=== PATIENT | female | born 1990 | race Caucasian/White ===

== ENCOUNTER → 2020-01-06 10:05 | Outpatient (BNVA) | payer BC, MEDICAID, SELFPAY | PROVIDERS: Family Provider Family Medicine; PCP Family Medicine; Visit Provider Obstetrics & Gynecology | DX: Z01.89 Encounter for other specified special examinations (principal) | CPT/HCPCS: 87491; 87591; 87661 ==

== ENCOUNTER → 2020-01-11 10:12 | Outpatient (BNVA) | payer BC, MEDICAID, SELFPAY | PROVIDERS: Family Provider Family Medicine; PCP Family Medicine; Referring Provider Obstetrics & Gynecology; Visit Provider Obstetrics & Gynecology | DX: N89.8 Other specified noninflammatory disorders of vagina (principal) | CPT/HCPCS: 87491; 87591; 87661 ==

== ENCOUNTER 2020-01-14 08:29 | Emergency (ER) | payer BC, MEDICAID, SELFPAY ==
[2020-01-14 08:34] VITALS: BMI 22.6
[2020-01-14 08:38] VITALS: BP 116/72; PULSE 74; RESP 18; TEMP 36.7; O2SAT 96
[2020-01-14 08:54] LABS: Basophils # 0.1 10^3/uL (0.0-0.1); Basophils % 0.7 %; Eosinophils # 0.2 10^3/uL (0.0-0.8); Eosinophils % 2.4 %; Hematocrit 44.8 % (37.0-47.0); Hemoglobin 14.5 g/dL (11.5-15.3); Lymphocytes # 1.5 10^3/uL (0.8-4.8); Mean Corpuscular HGB Conc 32.4 g/dL (30.0-36.0); Mean Corpuscular Hemoglobin 27.7 pg (28.0-34.0); Mean Corpuscular Volume 85.7 fL (81-99); Mean Platelet Volume 11.9 fL (7.4-10.4); Monocytes # 0.7 10^3/uL (0.2-0.9); Monocytes % 7.7 %; Neutrophils # 6.5 10^3/uL (1.8-7.7); Neutrophils % 72.1 %; Nucleated Red Blood Cells % 0 %; Platelet Count 204 10^3/cmm (130-400); Red Blood Count 5.23 10^6/uL (4.1-5.3); Red Cell Distribution Width 13.5 % (12.1-15.1); White Blood Count 9.1 10^3/uL (4.0-10.0)
--- NOTE | 2020-01-14 08:56 | W.ED.ABDPA2 ---
HPI - Abdominal Pain General: Chief Complaint: Abdominal Pain Stated Complaint: ABD PAIN Time Seen by Provider: 01/14/20 08:33 Source: patient Mode of arrival: ambulatory Limitations: no limitations History of Present Illness: HPI narrative: Patient is a 29-year-old female who presents to ED today with complaints of abdominal cramping and diarrhea that started yesterday. Looking at patient's visit history she has seen Dr. Lopez recently and was diagnosed with BV and placed on Flagyl. The STD cultures obtained for gonorrhea, chlamydia, and trichomonas are reported and found to be negative. Patient tells me she has a lot of stomach issues and reports being evaluated at [facility] in [place]. She states she had an ultrasound of her abdomen performed yesterday. She was supposed to have an EGD, colonoscopy, and swallow study but states these tests have been postponed due to the coronavirus. Patient has not been running fevers. She has not had any nausea or vomiting. MD elicited complaint: abdominal pain Onset (ago): day(s) Pain Consistency: intermittent Severity: moderate Quality: cramping Exacerbating factors: nothing Relieving factors: nothing Associated Symptoms: Reports diarrhea; Denies chills, dysuria, fever(s), hematochezia, hematuria, hematemesis, melena, nausea, syncope and vomiting Related Data: Date of Last Menstrual Period: 12/20/19 Review of Systems Const: Denies: fever, chills, body aches, change in appetite, change in weight or fatigue ENMT: Denies: throat pain, enlarged tonsils or painful swallowing Card: Denies: chest pain, palpitations, irregular heart rhythm, edema, lightheadedness, syncope or pre-syncope Resp: Denies: shortness of breath, productive cough, coughing up blood or chest congestion GI: Reports: abdominal pain and diarrhea; Denies: nausea, vomiting, vomiting blood, rectal swelling, blood in stool, black tarry stool, mucus in stool, white/light colored stool or fatty stool : Reports: vaginal discharge (improving; being treated for BV; STD cultures came back negative); Denies: flank pain, difficulty urinating, painful urination, urinary frequency, urinary urgency, blood in urine or genital itching [facility] ED PFSH: Family History (Updated 01/06/20 @ 09:46 by Amber Kingston RN) Mother Cervical cancer Thyroid condition Hypertension Heart disease Grandmother Ovarian cancer maternal Social History Smoking and tobacco status: current every day smoker Quit status (tobacco): has quit using tobacco Year quit tobacco: 2017, uses e-cigarettes Alcohol intake: current Alcohol intake frequency: holidays/special occasions only Alcohol type: beer, wine and hard liquor Female Reproductive History: Date of last menstrual period: 12/20/19 Physical Exam Const: COMMON NORMALS: no apparent distress, average body habitus, oriented x3, no limitations, healthy appearing, alert and well nourished Resp: COMMON NORMALS: normal respiratory effort and clear to auscultation bilaterally AUSCULTATION: clear to auscultation bilaterally Cardio: COMMON NORMALS: regular rate and regular rhythm RATE: regular rate RHYTHM: regular rhythm GI: COMMON NORMALS: normal to inspection, nondistended, normoactive bowel sounds, soft to palpation, no hepatosplenomegaly and no masses PALPATION: Yes soft, Yes tender (mild-periumbilical, LLQ, RUQ) and Yes no hepatosplenomegaly : COMMON NORMALS: Yes no CVA tenderness BLADDER/KIDNEY EXAM: Yes no CVA tenderness Back/Pelvis: COMMON NORMALS: no CVA tenderness Neuro: COMMON NORMALS: oriented x3 SENSORIUM/ORIENTATION: Yes alert Skin: COMMON NORMALS: no rashes or lesions noted GENERAL SKIN EXAM: no rashes or lesions noted Course Vital Signs: Vital signs: Vital Signs Temperature 98.0 F 01/14/20 08:38 Pulse Rate 72 01/14/20 09:59 Respiratory Rate 18 01/14/20 09:59 Blood Pressure 113/74 01/14/20 09:59 Pulse Oximetry 98 01/14/20 09:59 MDM - Abdominal Pain MDM Narrative: Medical decision making narrative: Patient's labs are non-concerning at this time. Her abdomen is nonsurgical. Most likely the cramping and diarrhea has been caused by the recent Flagyl. She states she only has about 2-3 doses left. Recommend she finish the course. We will go ahead and prescribe her Bentyl to help with the cramping. Medical release was faxed to [facility] to try to get results of her ultrasound report however we waited over an hour and still have not heard back-ultimately I do not feel this is going to change my management from the emergency department. Told her I would contact her if and when we get a report and if it was abnormal in any way. Otherwise I recommend she follow-up with PCP and her GI provider once they start seeing patients again. She was instructed to return to the emergency department for worsening symptoms. Lab Data: Labs: Lab Results 01/14/20 01/14/20 01/14/20 Range/Units 08:44 08:44 08:44 WBC 9.1 (4.0-10.0) 10^3/ uL RBC 5.23 (4.1-5.3) 10^6/u L Hgb 14.5 (11.5-15.3) g/dL Hct 44.8 (37.0-47.0) % MCV 85.7 (81-99) fL MCH 27.7 L (28.0-34.0) pg MCHC 32.4 (30.0-36.0) g/dL RDW 13.5 (12.1-15.1) % Plt Count 204 (130-400) 10^3/c mm MPV 11.9 H (7.4-10.4) fL Neut % (Auto) 72.1 % Lymph % (Auto) 17.0 % [place] % (Auto) 7.7 % Eos % (Auto) 2.4 % Baso % (Auto) 0.7 % Neut # (Auto) 6.5 (1.8-7.7) 10^3/u L Lymph # (Auto) 1.5 (0.8-4.8) 10^3/u L [place] # (Auto) 0.7 (0.2-0.9) 10^3/u L Eos # (Auto) 0.2 (0.0-0.8) 10^3/u L Baso # (Auto) 0.1 (0.0-0.1) 10^3/u L Nucleated RBC % (a uto) 0 % Nucleated RBCs # 0.0 /100WBC Sodium 137 (136-145) mmol/L Potassium 4.1 (3.5-5.1) mmol/L Chloride 102 (98-107) mmol/L Carbon Dioxide 28 (22-29) mmol/L Anion Gap 11.1 (5-19) BUN 15 (6-20) mg/dL Creatinine 0.8 (0.5-0.9) mg/dL GFR Calculation 84.2 L (90-130) mL/min Glucose 104 (65-115) mg/dL Calculated Osmolal ity 281 L (285-295) mOsm/k g Calcium 9.7 (8.5-10.5) mg/dL Total Bilirubin 0.5 (0.15-1.2) mg/dL AST 13 (0-32) U/L ALT 6 (0-33) U/L Alkaline Phosphata se 57 (35-105) IU/L Total Protein 7.5 (6.6-8.7) g/dL Albumin 4.6 (3.5-5.2) g/dL Globulin 2.9 (1.3-4.6) g/dL Lipase 34 (13-60) U/L HCG, Qual Negative (Negative) Urine Color (Yellow) Urine Appearance (CLEAR) Urine pH (5-7) Ur Specific Gravit y (1.005-1.030) Urine Protein (Negative) Urine Glucose (UA) (Normal) Urine Ketones (Negative) Urine Blood (Negative) Urine Nitrate (Negative) Urine Bilirubin (NEGATIVE) Urine Urobilinogen (Negative) mg/dL Ur Leukocyte Angelique ase (Negative) 01/14/20 Range/Units 08:50 WBC (4.0-10.0) 10^3/ uL RBC (4.1-5.3) 10^6/u L Hgb (11.5-15.3) g/dL Hct (37.0-47.0) % MCV (81-99) fL MCH (28.0-34.0) pg MCHC (30.0-36.0) g/dL RDW (12.1-15.1) % Plt Count (130-400) 10^3/c mm MPV (7.4-10.4) fL Neut % (Auto) % Lymph % (Auto) % [place] % (Auto) % Eos % (Auto) % Baso % (Auto) % Neut # (Auto) (1.8-7.7) 10^3/u L Lymph # (Auto) (0.8-4.8) 10^3/u L [place] # (Auto) (0.2-0.9) 10^3/u L Eos # (Auto) (0.0-0.8) 10^3/u L Baso # (Auto) (0.0-0.1) 10^3/u L Nucleated RBC % (a uto) % Nucleated RBCs # /100WBC Sodium (136-145) mmol/L Potassium (3.5-5.1) mmol/L Chloride (98-107) mmol/L Carbon Dioxide (22-29) mmol/L Anion Gap (5-19) BUN (6-20) mg/dL Creatinine (0.5-0.9) mg/dL GFR Calculation (90-130) mL/min Glucose (65-115) mg/dL Calculated Osmolal ity (285-295) mOsm/k g Calcium (8.5-10.5) mg/dL Total Bilirubin (0.15-1.2) mg/dL AST (0-32) U/L ALT (0-33) U/L Alkaline Phosphata se (35-105) IU/L Total Protein (6.6-8.7) g/dL Albumin (3.5-5.2) g/dL Globulin (1.3-4.6) g/dL Lipase (13-60) U/L HCG, Qual (Negative) Urine Color Yellow (Yellow) Urine Appearance Clear (CLEAR) Urine pH 5 (5-7) Ur Specific Gravit y 1.020 (1.005-1.030) Urine Protein Neg (Negative) Urine Glucose (UA) Norm (Normal) Urine Ketones Negative (Negative) Urine Blood Neg (Negative) Urine Nitrate Negative (Negative) Urine Bilirubin Neg (NEGATIVE) Urine Urobilinogen Norm (Negative) mg/dL Ur Leukocyte Angelique ase Negative (Negative) Discharge Plan Discharge Patient Disposition: Home, Self-Care Clinical Impression: Abdominal cramping, Adverse reaction to antibiotic Condition: Stable Prescriptions: New dicyclomine 20 mg tablet 20 mg PO QID Qty: 20 RF: 0 No Action sertraline [Zoloft] 100 mg tablet 100 mg PO QDAY RF: 0 buspirone 5 mg tablet 5 mg PO BID RF: 0 cyproheptadine 4 mg tablet 2 mg PO .COMPLEX RF: 0 bupropion HCl [Wellbutrin XL] 300 mg tablet extended release 24 hr 300 mg PO QAM RF: 0 Discharge Orders: Discharge Order (Routine); Ordered 01/14/20 Ordered By: Alannah Mendez Referrals: Benedict Maharaj MD [Primary Care Provider] - Discharge Diet: Advance as tolerated Discharge Activity: Increase activity as tolerated Activity Restrictions/Additional Instructions: Return to the emergency department for worsening abdominal pain, fevers greater than 100.4, repetitive episodes of diarrhea or vomiting, or any other concerns you may have. Discharge Date/Time: 01/14/20 09:59 Coding Level of Care Code ED [facility] [employer] Sousaphones for Chg Fwd Exam Detailed
[2020-01-14 09:01] LABS: HCG, Serum Qual Negative (Negative)
[2020-01-14 09:07] LABS: Add Urine Microscopic? NO
[2020-01-14 09:07] LABS: Alanine Aminotransferase 6 U/L (0-33); Albumin Level 4.6 g/dL (3.5-5.2); Alkaline Phosphatase 57 IU/L (35-105); Anion Gap 11.1 (5-19); Aspartate Amino Transferase 13 U/L (0-32); Blood Urea Nitrogen 15 mg/dL (6-20); Calcium 9.7 mg/dL (8.5-10.5); Carbon Dioxide 28 mmol/L (22-29); Chloride 102 mmol/L (98-107); Creatinine Clr Calc Pharmacy 109.5378; Globulin 2.9 g/dL (1.3-4.6); Glomerular Filtration Rate 84.2 mL/min (90-130); Glucose 104 mg/dL (65-115); Lipase 34 U/L (13-60); Osmolality Calculated 281 mOsm/kg (285-295); Potassium 4.1 mmol/L (3.5-5.1); Sodium 137 mmol/L (136-145); Total Bilirubin 0.5 mg/dL (0.15-1.2); Total Protein 7.5 g/dL (6.6-8.7)
[2020-01-14 09:18] LABS: Bilirubin Urine Neg (NEGATIVE); Blood Urine Neg (Negative); Glucose Urine UA Norm (Normal); Ketones Urine Negative (Negative); Leukocyte Esterase Urine Negative (Negative); Nitrate Urine Negative (Negative); Protein Urine Neg (Negative); Urine Appearance Clear (CLEAR); Urine Color Yellow (Yellow); Urobilinogen Urine Norm (Negative); pH Urine 5 (5-7)
[2020-01-14 09:59] VITALS: BP 113/74; PULSE 72; RESP 18; O2SAT 98
== END 2020-01-14 09:59 | disposition home or self-care (01) ==
PROVIDERS: Emergency Provider Physician Assistant; Family Provider Family Medicine; PCP Family Medicine
DX: R10.9 Unspecified abdominal pain (principal); R19.7 Diarrhea, unspecified; T37.3X5A Adverse effect of other antiprotozoal drugs, initial encounter; F17.200 Nicotine dependence, unspecified, uncomplicated
CPT/HCPCS: 12345; 36415; 80053; 81003; 83690; 84703; 85025; 99281; 99282

== ENCOUNTER → 2020-01-17 18:03 | Outpatient (BNVA) | payer BC, MEDICAID, SELFPAY | PROVIDERS: Family Provider Family Medicine; PCP Family Medicine; Visit Provider Nurse Practitioner Family | DX: J02.9 Acute pharyngitis, unspecified (principal); J30.9 Allergic rhinitis, unspecified | CPT/HCPCS: 87081; 87880 ==

== ENCOUNTER → 2020-02-01 07:44 | Outpatient (BNVA) | payer MEDICAID, SELFPAY | PROVIDERS: Family Provider Family Medicine; PCP Family Medicine; Visit Provider Nurse Practitioner Psychiatric/Mental Health | DX: F33.1 Major depressive disorder, recurrent, moderate (principal); F41.1 Generalized anxiety disorder | CPT/HCPCS: 99214 ==

== ENCOUNTER → 2020-02-22 07:38 | Outpatient (BNVA) | payer MEDICAID, SELFPAY | PROVIDERS: Family Provider Family Medicine; PCP Family Medicine; Visit Provider Nurse Practitioner Psychiatric/Mental Health | DX: F33.1 Major depressive disorder, recurrent, moderate (principal); F41.1 Generalized anxiety disorder | CPT/HCPCS: 99214 ==

== ENCOUNTER → 2020-02-28 11:05 | Outpatient (BNVA) | payer BC, MEDICAID, SELFPAY | PROVIDERS: Family Provider Family Medicine; PCP Family Medicine; Visit Provider Obstetrics & Gynecology | DX: Z12.4 Encounter for screening for malignant neoplasm of cervix (principal) | CPT/HCPCS: 88175 ==

== ENCOUNTER → 2020-03-09 08:26 | Outpatient (BNVA) | payer BC, MEDICAID, SELFPAY | PROVIDERS: Family Provider Family Medicine; PCP Family Medicine; Visit Provider Nurse Practitioner Psychiatric/Mental Health | DX: F34.0 Cyclothymic disorder (principal); F41.1 Generalized anxiety disorder; F43.12 Post-traumatic stress disorder, chronic | CPT/HCPCS: 99214 ==

== ENCOUNTER → 2020-03-23 10:33 | Outpatient (BNVA) | payer BC, MEDICAID, SELFPAY | PROVIDERS: Family Provider Family Medicine; PCP Family Medicine; Visit Provider Obstetrics & Gynecology | DX: R87.610 Atypical squamous cells of undetermined significance on cytologic smear of cervix (ASC-US) (principal); R87.810 Cervical high risk human papillomavirus (HPV) DNA test positive | CPT/HCPCS: 88305 ==

== ENCOUNTER → 2020-04-13 07:31 | Outpatient (BNVA) | payer BC, MEDICAID, SELFPAY | PROVIDERS: Family Provider Family Medicine; PCP Family Medicine; Visit Provider Nurse Practitioner Psychiatric/Mental Health | DX: F34.0 Cyclothymic disorder (principal); F41.1 Generalized anxiety disorder; F31.64 Bipolar disorder, current episode mixed, severe, with psychotic features; F43.12 Post-traumatic stress disorder, chronic | CPT/HCPCS: 99214 ==

== ENCOUNTER → 2020-05-01 15:28 | Outpatient (BNVA) | payer BC, MEDICAID, SELFPAY | PROVIDERS: Family Provider Family Medicine; PCP Family Medicine; Visit Provider Nurse Practitioner | DX: R52 Pain, unspecified (principal) | CPT/HCPCS: 87635 ==

== ENCOUNTER → 2020-05-11 07:45 | Outpatient (BNVA) | payer BC, MEDICAID, SELFPAY | PROVIDERS: Family Provider Family Medicine; PCP Family Medicine; Visit Provider Nurse Practitioner Psychiatric/Mental Health | DX: F34.0 Cyclothymic disorder (principal); F42.2 Mixed obsessional thoughts and acts; F43.12 Post-traumatic stress disorder, chronic; F41.1 Generalized anxiety disorder; Z86.59 Personal history of other mental and behavioral disorders; Z03.89 Encounter for observation for other suspected diseases and conditions ruled out; F33.2 Major depressive disorder, recurrent severe without psychotic features | CPT/HCPCS: 99214 ==

== ENCOUNTER → 2020-06-06 09:25 | Outpatient (BNVA) | payer BC, MEDICAID, SELFPAY | PROVIDERS: Family Provider Family Medicine; PCP Family Medicine; Visit Provider Nurse Practitioner Psychiatric/Mental Health | DX: Z03.89 Encounter for observation for other suspected diseases and conditions ruled out (principal) | CPT/HCPCS: 80053; 82306; 82746; 84443; 85025 ==

== ENCOUNTER → 2020-07-06 09:22 | Outpatient (BNVA) | payer MEDICAID, SELFPAY | PROVIDERS: Family Provider Family Medicine; PCP Family Medicine; Visit Provider Nurse Practitioner Psychiatric/Mental Health | DX: F42.2 Mixed obsessional thoughts and acts (principal); F43.12 Post-traumatic stress disorder, chronic; F41.1 Generalized anxiety disorder; Z86.59 Personal history of other mental and behavioral disorders | CPT/HCPCS: 99214 ==

== ENCOUNTER → 2020-08-01 08:38 | Outpatient (BNVA) | payer MEDICAID, SELFPAY | PROVIDERS: Family Provider Family Medicine; PCP Family Medicine; Visit Provider Nurse Practitioner Psychiatric/Mental Health | DX: F33.1 Major depressive disorder, recurrent, moderate (principal); F42.2 Mixed obsessional thoughts and acts; F43.12 Post-traumatic stress disorder, chronic; F41.1 Generalized anxiety disorder; Z86.59 Personal history of other mental and behavioral disorders | CPT/HCPCS: 99214 ==

== ENCOUNTER → 2020-08-09 10:50 | Outpatient (BNVA) | payer MEDICAID, SELFPAY | PROVIDERS: Family Provider Family Medicine; PCP Family Medicine; Visit Provider Nurse Practitioner Women's Health | DX: R10.2 Pelvic and perineal pain (principal) | CPT/HCPCS: 81000 ==

== ENCOUNTER → 2020-08-30 08:14 | Outpatient (BNVA) | payer MEDICAID, SELFPAY | PROVIDERS: Family Provider Family Medicine; PCP Family Medicine; Visit Provider Nurse Practitioner Psychiatric/Mental Health | DX: F33.1 Major depressive disorder, recurrent, moderate (principal); F42.2 Mixed obsessional thoughts and acts; F43.12 Post-traumatic stress disorder, chronic; F41.1 Generalized anxiety disorder; Z86.59 Personal history of other mental and behavioral disorders | CPT/HCPCS: 99214 ==

== ENCOUNTER → 2020-10-09 09:28 | Outpatient (BNVA) | payer MEDICAID, SELFPAY | PROVIDERS: Family Provider Family Medicine; PCP Family Medicine; Visit Provider Nurse Practitioner Psychiatric/Mental Health | DX: F33.1 Major depressive disorder, recurrent, moderate (principal); F42.2 Mixed obsessional thoughts and acts; F43.12 Post-traumatic stress disorder, chronic; F41.1 Generalized anxiety disorder; Z86.59 Personal history of other mental and behavioral disorders | CPT/HCPCS: 99214 ==

== ENCOUNTER → 2020-12-05 07:26 | Outpatient (BNVA) | payer MEDICAID, SELFPAY | PROVIDERS: Family Provider Family Medicine; PCP Family Medicine; Visit Provider Nurse Practitioner Psychiatric/Mental Health | DX: F33.1 Major depressive disorder, recurrent, moderate (principal); F42.2 Mixed obsessional thoughts and acts; F43.12 Post-traumatic stress disorder, chronic; F41.1 Generalized anxiety disorder; Z86.59 Personal history of other mental and behavioral disorders | CPT/HCPCS: 99214 ==

== ENCOUNTER → 2021-01-16 07:29 | Outpatient (BNVA) | payer MEDICAID, SELFPAY | PROVIDERS: Family Provider Family Medicine; PCP Family Medicine; Visit Provider Nurse Practitioner Psychiatric/Mental Health | DX: F33.1 Major depressive disorder, recurrent, moderate (principal); F42.2 Mixed obsessional thoughts and acts; F43.12 Post-traumatic stress disorder, chronic; F41.1 Generalized anxiety disorder; Z79.899 Other long term (current) drug therapy; Z86.59 Personal history of other mental and behavioral disorders | CPT/HCPCS: 99214 ==

== ENCOUNTER → 2021-02-25 07:17 | Outpatient (BNVA) | payer MEDICAID, SELFPAY | PROVIDERS: Family Provider Family Medicine; PCP Family Medicine; Visit Provider Nurse Practitioner Psychiatric/Mental Health | DX: F33.1 Major depressive disorder, recurrent, moderate (principal); F42.2 Mixed obsessional thoughts and acts; F43.12 Post-traumatic stress disorder, chronic; F41.1 Generalized anxiety disorder; F84.0 Autistic disorder; Z86.59 Personal history of other mental and behavioral disorders | CPT/HCPCS: 80061; 83036; 99214 ==

== ENCOUNTER → 2021-03-18 09:08 | Outpatient (BNVA) | payer MEDICAID, SELFPAY | PROVIDERS: Family Provider Family Medicine; PCP Nurse Practitioner Family; Visit Provider Internal Medicine Rheumatology | DX: M19.90 Unspecified osteoarthritis, unspecified site (principal); Z84.0 Family history of diseases of the skin and subcutaneous tissue; Z79.899 Other long term (current) drug therapy; M26.649 Arthritis of unspecified temporomandibular joint; Z11.59 Encounter for screening for other viral diseases; Z11.1 Encounter for screening for respiratory tuberculosis; M79.7 Fibromyalgia; F17.210 Nicotine dependence, cigarettes, uncomplicated | CPT/HCPCS: 99204 ==

== ENCOUNTER 2021-03-18 10:19 | Outpatient (CLI) | payer MEDICAID, SELFPAY ==
--- NOTE | 2021-03-18 10:27 | XR_ITS ---
WS: [id number] Exam: XR foot LT min 3V* [id number] Date/Time of Exam: 03/18/2021 10:27 AM Reason For Exam: Z79.899 - Other intermediate (current) drug therapy Findings: The foot was examined in multiple views and reveals no fractures or displacements of bone. No bony a nomalies are noted. The bony elements are in adequate alignment. The joint spaces are smooth and eq uidistant. XR/XR foot LT min 3V* [id number] IMPRESSION: Negative left foot.
--- NOTE | 2021-03-18 10:27 | XR_ITS ---
WS: [id number] Exam: XR hand RT min 3V* [id number] Date/Time of Exam: 03/18/2021 10:27 AM Reason For Exam: Z79.899 - Other long term acute care registered nurse (current) drug therapy Findings: No fractures, soft tissue swelling, or unusual calcifications are noted. The hand shows normal bony alignment. There is no irregularity of the bony architecture. XR/XR hand RT min 3V* [id number] IMPRESSION: Normal right hand.
--- NOTE | 2021-03-18 10:27 | XR_ITS ---
WS: [id number] Exam: XR knee RT 3V* [id number] Date/Time of Exam: 03/18/2021 10:56 AM Reason For Exam: Z79.899 - Other longshore equipment operator (current) drug therapy No fracture or dislocation noted. Articular relationships are intact. No joint effusion. XR/XR knee RT 3V* [id number] Impression: Normal right knee
--- NOTE | 2021-03-18 10:27 | XR_ITS ---
WS: [id number] Exam: XR hand LT min 3V* [id number] Date/Time of Exam: 03/18/2021 10:27 AM Reason For Exam: Z79.899 - Other exterminator helper termite (current) drug therapy Findings: No fractures, soft tissue swelling, or unusual calcifications are noted. The hand shows normal bony alignment. There is no irregularity of the bony architecture. XR/XR hand LT min 3V* [id number] IMPRESSION: Normal left hand.
--- NOTE | 2021-03-18 10:27 | XR_ITS ---
WS: [id number] Exam: XR foot RT min 3V* [id number] Date/Time of Exam: 03/18/2021 10:27 AM Reason For Exam: Z79.899 - Other custodial (current) drug therapy Findings: The foot was examined in multiple views and reveals no fractures or displacements of bone. No bony a nomalies are noted. The bony elements are in adequate alignment. The joint spaces are smooth and eq uidistant. XR/XR foot RT min 3V* [id number] IMPRESSION: Negative right foot.
--- NOTE | 2021-03-18 10:27 | XR_ITS ---
WS: [id number] Exam: XR pelvis 1-2V* [id number] Date/Time of Exam: 03/18/2021 10:27 AM Reason For Exam: Z79.899 - Other group home (current) drug therapy Findings: There is no sign of fracture or dislocation. Articular relationships are intact. Adjacent soft tiss ue structures are unremarkable. Small nonspecific pelvic calcifications noted. XR/XR pelvis 1-2V* [id number] Impression: Negative pelvis.
--- NOTE | 2021-03-18 10:27 | XR_ITS ---
WS: [id number] Exam: XR knee LT 3V* [id number] Date/Time of Exam: 03/18/2021 10:27 AM Reason For Exam: Z79.899 - Other predatory animal exterminator (current) drug therapy Comparison 05/30/2011. No fracture or dislocation noted. Articular relationships are intact. No joint effusion. XR/XR knee LT 3V* [id number] Impression: Normal left knee
[2021-03-18 11:46] LABS: Basophils # 0.1 10^3/uL (0.0-0.1); Basophils % 0.6 %; Eosinophils # 0.3 10^3/uL (0.0-0.8); Eosinophils % 4.1 %; Hematocrit 43.6 % (37.0-47.0); Hemoglobin 14.3 g/dL (11.5-15.3); Lymphocytes # 1.7 10^3/uL (0.8-4.8); Mean Corpuscular HGB Conc 32.8 g/dL (30.0-36.0); Mean Corpuscular Hemoglobin 29.1 pg (28.0-34.0); Mean Corpuscular Volume 88.6 fL (81-99); Mean Platelet Volume 11.8 fL (7.4-10.4); Monocytes # 0.5 10^3/uL (0.2-0.9); Monocytes % 6.7 %; Neutrophils # 5.35 10^3/uL (1.8-7.7); Neutrophils % 67.2 %; Nucleated Red Blood Cells % 0 %; Platelet Count 169 10^3/cmm (130-400); Red Blood Count 4.92 10^6/uL (4.1-5.3); Red Cell Distribution Width 13.5 % (12.1-15.1)
[2021-03-18 12:16] LABS: 25 Hydroxy Vitamin D 13 ng/mL (30-100); Alanine Aminotransferase 13 U/L (0-33); Albumin Level 4.1 g/dL (3.5-5.2); Alkaline Phosphatase 55 IU/L (35-105); Aspartate Amino Transferase 17 U/L (0-32); C Reactive Protein 6.4 mg/L (0.0-4.9); Globulin 2.8 g/dL (1.3-4.6); Glomerular Filtration Rate 97.6 mL/min (90-130); Thyroid Stimulating Hormone 1.96 uIU/mL (0.27-4.20); Total Bilirubin 0.4 mg/dL (0.15-1.2); Total Protein 6.9 g/dL (6.6-8.7)
[2021-03-18 12:26] LABS: Hepatitis B Core AB, Total Non-Reactive (Nonreactive); Hepatitis B Surface Antigen Non-Reactive (Nonreactive); Hepatitis C Virus Antibody Non-Reactive (Nonreactive)
[2021-03-18 12:38] LABS: Erythrocyte Sedimentation Rate 6 mm/hr (0-15)
[2021-03-19 12:13] LABS: Cyclic Citrullinated Peptide <16 UNITS
[2021-03-19 13:18] LABS: Anti-Nuclear Antibody Screen NEGATIVE (NEGATIVE)
[2021-03-20 14:19] LABS: Quantiferon Mitogen 7.73 IU/mL; Quantiferon Nil 0.01 IU/mL; Quantiferon TB Gold NEGATIVE (NEGATIVE)
[2021-03-20 18:08] LABS: HLA-B27 NEGATIVE (NEGATIVE)
== END 2021-03-18 10:20 | disposition home or self-care (01) ==
PROVIDERS: PCP Nurse Practitioner Family; Visit Provider Internal Medicine Rheumatology
DX: M19.90 Unspecified osteoarthritis, unspecified site (principal); Z79.899 Other long term (current) drug therapy; Z11.59 Encounter for screening for other viral diseases; M45.9 Ankylosing spondylitis of unspecified sites in spine; Z11.1 Encounter for screening for respiratory tuberculosis
CPT/HCPCS: 36415; 72170; 73130; 73562; 73630; 80076; 82306; 82565; 84439; 84443; 85025; 85651; 86038; 86140; 86431; 86480; 86704; 86803; 86812; 87340

== ENCOUNTER 2021-04-02 08:25 | Outpatient (CLI) | payer MEDICAID, SELFPAY ==
--- NOTE | 2021-04-02 08:45 | MR_ITS ---
WS: [id number] NONCONTRAST MRI TMJ INDICATION: Bilateral TMJ disorder. Bilateral popping and locking with pain. Inability to close mouth . TECHNIQUE: Sagittal PD, axial T1, T2 gradient, coronal T1, and sagittal gradient imaging was obtained . Sagittal PD open-mouth views were obtained. T2 sagittal open mouth views. T2 gradient open-mouth. FINDINGS: Bilateral anterior displacement of the articular discs on the closed mouth views with recap ture (reduction) on the open-mouth views. This is similar in appearance bilaterally. Decreased anterior translation of the RIGHT mandibular condyle relative to the temporal bone articula r eminence on the open-mouth views. More normal anterior translation of the LEFT mandibular condyle w ith normal contact of the temporal bone articular eminence. No evidence of mandibular fracture. No evidence of avascular necrosis or edema. Normal mandibular roseline us bilaterally. Minimal flattening of the condylar heads bilaterally. Mild tendon thickening inferio r belly lateral pterygoids bilaterally. Visualized tongue base normal in appearance. Normal posterior nasopharynx. Normal bone marrow signal in the skull base. Paranasal sinuses appear well aerated. MR/MR TMJ con [id number] IMPRESSION: 1. Bilateral anterior displacement of the articular discs on the closed mouth views with recapture on the open-mouth views. 2. Slightly decreased anterior translation of the RIGHT mandibular condyle rel ative to the articular eminence on the open-mouth views compared to more normal anterior translation on the LEFT. 3. No significant degenerative edema or avascular necrosis 4. Minimal flattening of the condylar heads bilaterally. 5. Mild tendon thickening inferior belly lateral pterygoids bilaterally
== END 2021-04-02 08:26 | disposition home or self-care (01) ==
LOC: RADWPI 08:31
PROVIDERS: PCP Nurse Practitioner Family; Visit Provider Otolaryngology
DX: M26.603 Bilateral temporomandibular joint disorder, unspecified (principal)
CPT/HCPCS: 70336

== ENCOUNTER → 2021-04-18 12:40 | Outpatient (BNVA) | payer MEDICAID, SELFPAY | PROVIDERS: PCP Nurse Practitioner Family; Visit Provider Internal Medicine Rheumatology | DX: M19.90 Unspecified osteoarthritis, unspecified site (principal); M26.643 Arthritis of bilateral temporomandibular joint; Z84.0 Family history of diseases of the skin and subcutaneous tissue; M79.7 Fibromyalgia; F17.210 Nicotine dependence, cigarettes, uncomplicated | CPT/HCPCS: 99214 ==

== ENCOUNTER → 2021-05-21 10:21 | Outpatient (BNVA) | payer OTHER, SELFPAY | PROVIDERS: PCP Nurse Practitioner Family; Visit Provider Nurse Practitioner Psychiatric/Mental Health | DX: F33.1 Major depressive disorder, recurrent, moderate (principal); F42.2 Mixed obsessional thoughts and acts; F43.12 Post-traumatic stress disorder, chronic; F41.1 Generalized anxiety disorder; Z86.59 Personal history of other mental and behavioral disorders | CPT/HCPCS: 99214 ==

== ENCOUNTER → 2021-05-27 07:17 | Outpatient (BNVA) | payer OTHER, SELFPAY | PROVIDERS: PCP Nurse Practitioner Family; Visit Provider Counselor Mental Health | DX: F33.1 Major depressive disorder, recurrent, moderate (principal); F42.2 Mixed obsessional thoughts and acts; F43.12 Post-traumatic stress disorder, chronic; F41.1 Generalized anxiety disorder | CPT/HCPCS: 90834 ==

== ENCOUNTER → 2021-06-17 07:27 | Outpatient (BNVA) | payer OTHER, SELFPAY | PROVIDERS: PCP Nurse Practitioner Family; Visit Provider Counselor Mental Health | DX: F43.12 Post-traumatic stress disorder, chronic (principal); F42.2 Mixed obsessional thoughts and acts; F41.1 Generalized anxiety disorder; F33.1 Major depressive disorder, recurrent, moderate | CPT/HCPCS: 90834 ==

== ENCOUNTER → 2021-06-18 07:41 | Outpatient (BNVA) | payer OTHER, SELFPAY | PROVIDERS: PCP Nurse Practitioner Family; Visit Provider Nurse Practitioner Psychiatric/Mental Health | DX: F33.1 Major depressive disorder, recurrent, moderate (principal); F42.2 Mixed obsessional thoughts and acts; F43.12 Post-traumatic stress disorder, chronic; F41.1 Generalized anxiety disorder; Z86.59 Personal history of other mental and behavioral disorders | CPT/HCPCS: 99214 ==

== ENCOUNTER → 2021-06-24 08:17 | Outpatient (BNVA) | payer OTHER, SELFPAY | PROVIDERS: PCP Nurse Practitioner Family; Visit Provider Counselor Mental Health | DX: F43.12 Post-traumatic stress disorder, chronic (principal); F33.1 Major depressive disorder, recurrent, moderate; F42.2 Mixed obsessional thoughts and acts; F41.1 Generalized anxiety disorder | CPT/HCPCS: 90834 ==

== ENCOUNTER → 2021-07-08 08:24 | Outpatient (BNVA) | payer OTHER, SELFPAY | PROVIDERS: PCP Nurse Practitioner Family; Visit Provider Counselor Mental Health | DX: F43.12 Post-traumatic stress disorder, chronic (principal); F42.2 Mixed obsessional thoughts and acts; F33.1 Major depressive disorder, recurrent, moderate | CPT/HCPCS: 90834 ==

== ENCOUNTER → 2021-07-15 08:25 | Outpatient (BNVA) | payer OTHER, SELFPAY | PROVIDERS: PCP Nurse Practitioner Family; Visit Provider Counselor Mental Health | DX: F33.1 Major depressive disorder, recurrent, moderate (principal); F43.12 Post-traumatic stress disorder, chronic; F41.1 Generalized anxiety disorder | CPT/HCPCS: 90832 ==

== ENCOUNTER → 2021-07-22 08:08 | Outpatient (BNVA) | payer OTHER, SELFPAY | PROVIDERS: PCP Nurse Practitioner Family; Visit Provider Counselor Mental Health | DX: F33.1 Major depressive disorder, recurrent, moderate (principal); F41.1 Generalized anxiety disorder; F43.12 Post-traumatic stress disorder, chronic | CPT/HCPCS: 90834 ==

== ENCOUNTER → 2021-07-29 08:23 | Outpatient (BNVA) | payer OTHER, SELFPAY | PROVIDERS: PCP Nurse Practitioner Family; Visit Provider Counselor Mental Health | DX: F33.1 Major depressive disorder, recurrent, moderate (principal); F43.12 Post-traumatic stress disorder, chronic; F41.1 Generalized anxiety disorder | CPT/HCPCS: 90834; 80076; 82565; 85025; 86140 ==

== ENCOUNTER → 2021-07-31 07:12 | Outpatient (BNVA) | payer OTHER, SELFPAY | PROVIDERS: PCP Nurse Practitioner Family; Visit Provider Nurse Practitioner Psychiatric/Mental Health | DX: F33.1 Major depressive disorder, recurrent, moderate (principal); F42.2 Mixed obsessional thoughts and acts; F43.12 Post-traumatic stress disorder, chronic; F41.1 Generalized anxiety disorder; Z86.59 Personal history of other mental and behavioral disorders | CPT/HCPCS: 99214 ==

== ENCOUNTER → 2021-08-05 07:21 | Outpatient (BNVA) | payer OTHER, SELFPAY | PROVIDERS: PCP Nurse Practitioner Family; Visit Provider Counselor Mental Health | DX: F33.1 Major depressive disorder, recurrent, moderate (principal); F43.12 Post-traumatic stress disorder, chronic; F41.1 Generalized anxiety disorder | CPT/HCPCS: 90834 ==

== ENCOUNTER → 2021-08-12 07:51 | Outpatient (BNVA) | payer OTHER, SELFPAY | PROVIDERS: PCP Nurse Practitioner Family; Visit Provider Counselor Mental Health | DX: F33.1 Major depressive disorder, recurrent, moderate (principal); F43.12 Post-traumatic stress disorder, chronic; F42.2 Mixed obsessional thoughts and acts | CPT/HCPCS: 90834 ==

== ENCOUNTER → 2021-08-14 10:02 | Outpatient (BNVA) | payer OTHER, SELFPAY | PROVIDERS: PCP Nurse Practitioner Family; Visit Provider Internal Medicine Rheumatology | DX: M15.9 Polyosteoarthritis, unspecified (principal); M26.643 Arthritis of bilateral temporomandibular joint; Z79.899 Other long term (current) drug therapy; M79.7 Fibromyalgia; G47.9 Sleep disorder, unspecified; Z84.0 Family history of diseases of the skin and subcutaneous tissue; Z71.89 Other specified counseling; F17.200 Nicotine dependence, unspecified, uncomplicated | CPT/HCPCS: 99214 ==

== ENCOUNTER → 2021-08-19 07:44 | Outpatient (BNVA) | payer OTHER, SELFPAY | PROVIDERS: PCP Nurse Practitioner Family; Visit Provider Counselor Mental Health | DX: F33.1 Major depressive disorder, recurrent, moderate (principal); F43.12 Post-traumatic stress disorder, chronic; F41.1 Generalized anxiety disorder | CPT/HCPCS: 90832 ==

== ENCOUNTER → 2021-09-02 08:20 | Outpatient (BNVA) | payer OTHER, SELFPAY | PROVIDERS: PCP Nurse Practitioner Family; Visit Provider Counselor Mental Health | DX: F43.12 Post-traumatic stress disorder, chronic (principal); F41.1 Generalized anxiety disorder | CPT/HCPCS: 90832 ==

== ENCOUNTER → 2021-09-09 07:47 | Outpatient (BNVA) | payer OTHER, SELFPAY | PROVIDERS: PCP Nurse Practitioner Family; Visit Provider Counselor Mental Health | DX: F43.12 Post-traumatic stress disorder, chronic (principal); F42.2 Mixed obsessional thoughts and acts; F33.1 Major depressive disorder, recurrent, moderate; F41.1 Generalized anxiety disorder | CPT/HCPCS: 90834 ==

== ENCOUNTER → 2021-09-16 07:30 | Outpatient (BNVA) | payer OTHER, SELFPAY | PROVIDERS: PCP Nurse Practitioner Family; Visit Provider Counselor Mental Health | DX: F33.1 Major depressive disorder, recurrent, moderate (principal); F41.1 Generalized anxiety disorder; F42.2 Mixed obsessional thoughts and acts; F43.12 Post-traumatic stress disorder, chronic | CPT/HCPCS: 90832 ==

== ENCOUNTER → 2021-09-18 10:04 | Outpatient (BNVA) | payer OTHER, SELFPAY | PROVIDERS: PCP Nurse Practitioner Family; Visit Provider Internal Medicine Rheumatology | DX: M19.90 Unspecified osteoarthritis, unspecified site (principal); Z79.899 Other long term (current) drug therapy | CPT/HCPCS: 80076; 82306; 82565; 85025; 86140 ==

== ENCOUNTER → 2021-09-23 08:03 | Outpatient (BNVA) | payer OTHER, SELFPAY | PROVIDERS: PCP Nurse Practitioner Family; Visit Provider Counselor Mental Health | DX: F33.1 Major depressive disorder, recurrent, moderate (principal); F43.12 Post-traumatic stress disorder, chronic; F41.1 Generalized anxiety disorder | CPT/HCPCS: 90834 ==

== ENCOUNTER → 2021-09-24 10:08 | Outpatient (BNVA) | payer MEDICAID, SELFPAY | PROVIDERS: PCP Nurse Practitioner Family; Visit Provider Obstetrics & Gynecology | DX: Z12.4 Encounter for screening for malignant neoplasm of cervix (principal); R63.5 Abnormal weight gain; Z32.02 Encounter for pregnancy test, result negative | CPT/HCPCS: 84443; 84702; 87624 ==

== ENCOUNTER → 2021-09-30 09:19 | Outpatient (BNVA) | payer OTHER, SELFPAY | PROVIDERS: PCP Nurse Practitioner Family; Visit Provider Counselor Mental Health | DX: F33.1 Major depressive disorder, recurrent, moderate (principal); F43.12 Post-traumatic stress disorder, chronic; F42.2 Mixed obsessional thoughts and acts; F41.1 Generalized anxiety disorder | CPT/HCPCS: 90834 ==

== ENCOUNTER → 2021-10-08 07:31 | Outpatient (BNVA) | payer OTHER, SELFPAY | PROVIDERS: PCP Nurse Practitioner Family; Visit Provider Nurse Practitioner Psychiatric/Mental Health | DX: F33.1 Major depressive disorder, recurrent, moderate (principal); F42.2 Mixed obsessional thoughts and acts; F43.12 Post-traumatic stress disorder, chronic; F41.1 Generalized anxiety disorder; Z86.59 Personal history of other mental and behavioral disorders | CPT/HCPCS: 99214 ==

== ENCOUNTER → 2021-10-14 08:12 | Outpatient (BNVA) | payer OTHER, SELFPAY | PROVIDERS: PCP Nurse Practitioner Family; Visit Provider Counselor Mental Health | DX: F33.1 Major depressive disorder, recurrent, moderate (principal); F41.1 Generalized anxiety disorder; F43.12 Post-traumatic stress disorder, chronic | CPT/HCPCS: 90832 ==

== ENCOUNTER → 2021-10-21 07:52 | Outpatient (BNVA) | payer OTHER, SELFPAY | PROVIDERS: PCP Nurse Practitioner Family; Visit Provider Counselor Mental Health | DX: F33.1 Major depressive disorder, recurrent, moderate (principal); F42.2 Mixed obsessional thoughts and acts; F43.12 Post-traumatic stress disorder, chronic | CPT/HCPCS: 90832 ==

== ENCOUNTER → 2021-10-28 08:05 | Outpatient (BNVA) | payer OTHER, SELFPAY | PROVIDERS: PCP Nurse Practitioner Family; Visit Provider Counselor Mental Health | DX: F43.12 Post-traumatic stress disorder, chronic (principal); F33.1 Major depressive disorder, recurrent, moderate; F42.2 Mixed obsessional thoughts and acts | CPT/HCPCS: 90834 ==

== ENCOUNTER → 2021-11-11 07:52 | Outpatient (BNVA) | payer OTHER, SELFPAY | PROVIDERS: PCP Nurse Practitioner Family; Visit Provider Nurse Practitioner Psychiatric/Mental Health | DX: F33.1 Major depressive disorder, recurrent, moderate (principal); F43.12 Post-traumatic stress disorder, chronic; F42.2 Mixed obsessional thoughts and acts; F41.1 Generalized anxiety disorder; Z86.59 Personal history of other mental and behavioral disorders | CPT/HCPCS: 99214 ==

== ENCOUNTER → 2021-11-25 07:55 | Outpatient (BNVA) | payer OTHER, SELFPAY | PROVIDERS: PCP Nurse Practitioner Family; Visit Provider Counselor Mental Health | DX: F43.12 Post-traumatic stress disorder, chronic (principal); F33.1 Major depressive disorder, recurrent, moderate; F42.2 Mixed obsessional thoughts and acts | CPT/HCPCS: 90834 ==

== ENCOUNTER → 2021-11-26 10:40 | Outpatient (BNVA) | payer MEDICAID, SELFPAY | PROVIDERS: PCP Nurse Practitioner Family; Referring Provider Nurse Practitioner Family; Visit Provider Orthopaedic Surgery | DX: M54.50 Low back pain, unspecified (principal); M54.2 Cervicalgia; M41.9 Scoliosis, unspecified | CPT/HCPCS: 72050; 72072; 72110 ==

== ENCOUNTER → 2021-12-04 10:38 | Outpatient (BNVA) | payer MEDICAID, SELFPAY | PROVIDERS: PCP Nurse Practitioner Family; Visit Provider Internal Medicine Rheumatology | DX: M06.041 Rheumatoid arthritis without rheumatoid factor, right hand (principal); M06.042 Rheumatoid arthritis without rheumatoid factor, left hand; Z79.899 Other long term (current) drug therapy; M79.7 Fibromyalgia; M43.20 Fusion of spine, site unspecified; Z71.89 Other specified counseling | CPT/HCPCS: 99214 ==

== ENCOUNTER → 2021-12-09 09:32 | Outpatient (BNVA) | payer OTHER, MEDICAID, SELFPAY | PROVIDERS: PCP Nurse Practitioner Family; Visit Provider Counselor Mental Health | DX: F43.12 Post-traumatic stress disorder, chronic (principal); F33.1 Major depressive disorder, recurrent, moderate; F42.2 Mixed obsessional thoughts and acts | CPT/HCPCS: 90834 ==

== ENCOUNTER → 2021-12-23 07:27 | Outpatient (BNVA) | payer OTHER, MEDICAID, SELFPAY | PROVIDERS: PCP Nurse Practitioner Family; Visit Provider Nurse Practitioner Psychiatric/Mental Health | DX: F43.12 Post-traumatic stress disorder, chronic (principal); F33.1 Major depressive disorder, recurrent, moderate; F42.2 Mixed obsessional thoughts and acts | CPT/HCPCS: 90834; 99214 ==

== ENCOUNTER → 2022-01-06 08:37 | Outpatient (BNVA) | payer OTHER, SELFPAY | PROVIDERS: PCP Nurse Practitioner Family; Visit Provider Counselor Mental Health | DX: F43.12 Post-traumatic stress disorder, chronic (principal); F33.1 Major depressive disorder, recurrent, moderate; F42.2 Mixed obsessional thoughts and acts | CPT/HCPCS: 90832; 80076; 82306; 82565; 85025; 86140 ==

== ENCOUNTER → 2022-01-20 09:53 | Outpatient (BNVA) | payer OTHER, SELFPAY | PROVIDERS: PCP Nurse Practitioner Family; Visit Provider Counselor Mental Health | DX: F33.1 Major depressive disorder, recurrent, moderate (principal); F42.2 Mixed obsessional thoughts and acts; F43.12 Post-traumatic stress disorder, chronic | CPT/HCPCS: 90834 ==

== ENCOUNTER → 2022-01-28 07:46 | Outpatient (BNVA) | payer OTHER, SELFPAY | PROVIDERS: PCP Nurse Practitioner Family; Visit Provider Nurse Practitioner Psychiatric/Mental Health | DX: F33.1 Major depressive disorder, recurrent, moderate (principal); F43.12 Post-traumatic stress disorder, chronic; F42.2 Mixed obsessional thoughts and acts; F41.1 Generalized anxiety disorder; Z86.59 Personal history of other mental and behavioral disorders | CPT/HCPCS: 99214 ==

== ENCOUNTER → 2022-02-03 07:55 | Outpatient (BNVA) | payer OTHER, SELFPAY | PROVIDERS: PCP Nurse Practitioner Family; Visit Provider Counselor Mental Health | DX: F43.12 Post-traumatic stress disorder, chronic (principal); F33.1 Major depressive disorder, recurrent, moderate; F42.2 Mixed obsessional thoughts and acts | CPT/HCPCS: 90832 ==

== ENCOUNTER → 2022-02-17 09:57 | Outpatient (BNVA) | payer MEDICAID, SELFPAY | PROVIDERS: PCP Nurse Practitioner Family; Visit Provider Counselor Mental Health | DX: F43.12 Post-traumatic stress disorder, chronic (principal); F33.1 Major depressive disorder, recurrent, moderate; F42.2 Mixed obsessional thoughts and acts | CPT/HCPCS: 90832; 90834 ==

== ENCOUNTER → 2022-02-24 07:25 | Outpatient (BNVA) | payer OTHER, SELFPAY | PROVIDERS: PCP Nurse Practitioner Family; Visit Provider Counselor Mental Health | DX: F43.12 Post-traumatic stress disorder, chronic (principal); F33.1 Major depressive disorder, recurrent, moderate; F42.2 Mixed obsessional thoughts and acts | CPT/HCPCS: 90834 ==

== ENCOUNTER → 2022-03-10 08:41 | Outpatient (BNVA) | payer MEDICAID, SELFPAY | PROVIDERS: PCP Nurse Practitioner Family; Visit Provider Counselor Mental Health | DX: F43.12 Post-traumatic stress disorder, chronic (principal); F33.1 Major depressive disorder, recurrent, moderate; F42.2 Mixed obsessional thoughts and acts | CPT/HCPCS: 90832 ==

== ENCOUNTER → 2022-03-20 12:24 | Outpatient (BNVA) | payer MEDICAID, SELFPAY | PROVIDERS: PCP Nurse Practitioner Family; Visit Provider Internal Medicine Pulmonary Disease | DX: R06.00 Dyspnea, unspecified (principal); M06.00 Rheumatoid arthritis without rheumatoid factor, unspecified site; E66.9 Obesity, unspecified; Z79.899 Other long term (current) drug therapy; F17.210 Nicotine dependence, cigarettes, uncomplicated; G47.33 Obstructive sleep apnea (adult) (pediatric) | CPT/HCPCS: 99204 ==

== ENCOUNTER 2022-03-20 14:00 | Outpatient (CLI) | payer MEDICAID, SELFPAY ==
--- NOTE | 2022-03-20 14:59 | PFTS_ITS ---
Date of Study:03/20/22 Date of Dictation: MECHANICS: Forced vital capacity (FVC) is reduced. Forced expiratory volume in one second (FEV1) is reduced. FEV1/FVC is normal. FLOW VOLUME LOOP: Reduced lateral lung volumes. LUNG VOLUMES: Total lung capacity (TLC) is reduced. Residual volume (RV) is reduced. DIFFUSING CAPACITY FOR CARBON MONOXIDE: Normal. INTERPRETATION: The prebronchodilator spirometry is consistent with severe airflow obstruction. The postbronchodilator spirometry is consistent with mild restriction with a significant postbronchodilator response. The spirometry is very suggestive of reversible airflow obstruction. Lung volumes are consistent with restrictive lung disease. Gas exchange (DLCO) is normal. MTDD
--- NOTE | 2022-03-20 15:20 | XR_ITS ---
WS: [id number] Exam: XR chest 2V* [id number] Date/Time of Exam: 03/20/2022 3:21 PM Reason For Exam: Dyspnea Comparison 08/29/2018. The lungs are clear and fully expanded. Cardiomediastinal silhouette is unremarkable. No pleural effu sions. Dextroscoliosis of the midthoracic spine. Surgical sutures seen at the base of the neck on the right. XR/XR chest 2V* [id number] IMPRESSION: 1. No acute cardiopulmonary finding. No change.
== END 2022-03-20 14:01 | disposition home or self-care (01) ==
PROVIDERS: PCP Nurse Practitioner Family; Visit Provider Internal Medicine Pulmonary Disease
DX: R06.00 Dyspnea, unspecified (principal); R00.0 Tachycardia, unspecified
CPT/HCPCS: 71046; 80053; 82103; 82785; 84439; 84443; 85025; 86003; 94060; 94726; 94729; J7614

== ENCOUNTER → 2022-04-02 13:00 | Outpatient (BNVA) | payer MEDICAID, SELFPAY | PROVIDERS: PCP Nurse Practitioner Family; Visit Provider Internal Medicine Cardiovascular Disease | DX: R00.0 Tachycardia, unspecified (principal); I34.1 Nonrheumatic mitral (valve) prolapse; M06.00 Rheumatoid arthritis without rheumatoid factor, unspecified site; E66.9 Obesity, unspecified; Z68.31 Body mass index [BMI] 31.0-31.9, adult; F33.1 Major depressive disorder, recurrent, moderate; F90.9 Attention-deficit hyperactivity disorder, unspecified type; R00.2 Palpitations | CPT/HCPCS: 93005; 93242; 99204 ==

== ENCOUNTER → 2022-04-17 10:19 | Outpatient (BNVA) | payer OTHER, SELFPAY | PROVIDERS: PCP Nurse Practitioner Family; Visit Provider Internal Medicine Pulmonary Disease | DX: R06.00 Dyspnea, unspecified (principal); M06.00 Rheumatoid arthritis without rheumatoid factor, unspecified site; E66.9 Obesity, unspecified; Z79.899 Other long term (current) drug therapy; J44.9 Chronic obstructive pulmonary disease, unspecified; I34.1 Nonrheumatic mitral (valve) prolapse; R14.0 Abdominal distension (gaseous); Z51.6 Encounter for desensitization to allergens; F17.210 Nicotine dependence, cigarettes, uncomplicated | CPT/HCPCS: 99214 ==

== ENCOUNTER → 2022-04-21 07:35 | Outpatient (BNVA) | payer OTHER, SELFPAY | PROVIDERS: PCP Nurse Practitioner Family; Visit Provider Counselor Mental Health | DX: F43.12 Post-traumatic stress disorder, chronic (principal); F33.1 Major depressive disorder, recurrent, moderate; F42.2 Mixed obsessional thoughts and acts | CPT/HCPCS: 90832 ==

== ENCOUNTER → 2022-05-13 14:54 | Outpatient (BNVA) | payer MEDICAID, SELFPAY | PROVIDERS: PCP Nurse Practitioner Family; Visit Provider Internal Medicine Rheumatology | DX: M06.041 Rheumatoid arthritis without rheumatoid factor, right hand (principal); M06.042 Rheumatoid arthritis without rheumatoid factor, left hand; Z79.899 Other long term (current) drug therapy; M79.7 Fibromyalgia; G47.9 Sleep disorder, unspecified; Z71.89 Other specified counseling | CPT/HCPCS: 99214 ==

== ENCOUNTER 2022-05-16 13:59 | Outpatient (CLI) | payer MEDICAID, SELFPAY ==
--- NOTE | 2022-05-16 14:15 | US_ITS ---
WS: [id number] ULTRASOUND THYROID TECHNIQUE: Ultrasound of the thyroid. CLINICAL INFORMATION: R79.89 - Other specified abnormal findings of blood chemi... COMPARISON: CT neck 2018 and ultrasound thyroid 5 FINDINGS: Thyroid: History of RIGHT thyroidectomy. LEFT thyroid lobe is normal in size and echotexture. No thyr oid nodules are present. Right thyroid lobe: Removed Left thyroid lobe: 5.0 cm x 1.8 cm x 2.1 cm. Isthmus: 0.2 mm. Cervical lymphadenopathy: None. US/US thyroid [id number] IMPRESSION: 1. History of RIGHT thyroidectomy. RIGHT thyroidectomy bed is normal in appear ance 2. LEFT thyroid lobe is normal in size and echotexture. 3. No thyroid nodules are present.
== END 2022-05-16 14:00 | disposition home or self-care (01) ==
LOC: RAD 13:59
PROVIDERS: PCP Nurse Practitioner Family; Visit Provider Nurse Practitioner Family
DX: R79.89 Other specified abnormal findings of blood chemistry (principal); E89.0 Postprocedural hypothyroidism
CPT/HCPCS: 76536

== ENCOUNTER → 2022-05-28 07:40 | Outpatient (BNVA) | payer MEDICAID, SELFPAY | PROVIDERS: PCP Nurse Practitioner Family; Referring Provider Nurse Practitioner Family; Visit Provider Internal Medicine | DX: R53.83 Other fatigue (principal); E89.0 Postprocedural hypothyroidism | CPT/HCPCS: 99204; 99214 ==

== ENCOUNTER → 2022-06-04 10:53 | Outpatient (BNVA) | payer MEDICAID, SELFPAY | PROVIDERS: PCP Nurse Practitioner Family; Referring Provider Orthopaedic Surgery; Visit Provider Specialist | DX: G56.22 Lesion of ulnar nerve, left upper limb (principal) | CPT/HCPCS: 95910; 95913 ==

== ENCOUNTER → 2022-06-17 08:25 | Outpatient (BNVA) | payer MEDICAID, SELFPAY | PROVIDERS: PCP Nurse Practitioner Family; Visit Provider Orthopaedic Surgery | DX: G56.20 Lesion of ulnar nerve, unspecified upper limb (principal) | CPT/HCPCS: 99213; 99214 ==

== ENCOUNTER → 2022-06-18 09:32 | Outpatient (BNVA) | payer MEDICAID, SELFPAY | PROVIDERS: PCP Nurse Practitioner Family; Visit Provider Internal Medicine Pulmonary Disease | DX: R06.09 Other forms of dyspnea (principal); M06.00 Rheumatoid arthritis without rheumatoid factor, unspecified site; E66.9 Obesity, unspecified; Z79.899 Other long term (current) drug therapy; J44.9 Chronic obstructive pulmonary disease, unspecified; E55.9 Vitamin D deficiency, unspecified; E03.8 Other specified hypothyroidism; R25.2 Cramp and spasm; I10 Essential (primary) hypertension; Z68.33 Body mass index [BMI] 33.0-33.9, adult; R60.9 Edema, unspecified; R60.0 Localized edema; Z86.79 Personal history of other diseases of the circulatory system; Z98.890 Other specified postprocedural states; Z77.22 Contact with and (suspected) exposure to environmental tobacco smoke (acute) (chronic) | CPT/HCPCS: 80053; 82306; 83735; 83880; 84439; 84443; 84481; 99214 ==

== ENCOUNTER 2022-06-19 08:12 | Outpatient (CLI) | payer MEDICAID, SELFPAY ==
--- NOTE | 2022-06-19 09:15 | US_ITS ---
WS: [id number] ULTRASOUND ABDOMEN CLINICAL INFORMATION: distension COMPARISON: Ultrasound 3 ,019 FINDINGS: Liver Size: Enlarged Craniocaudal length: 16.7 cm. Echogenicity: Coarse Surface nodularity: None. Mass (size and location): None. Bile ducts Intrahepatic ducts: Normal. Common bile duct diameter: 0.3 cm. Gallbladder Normal. Gallstones: None. Gallbladder sludge: None. Gallbladder wall thickening: None. Pericholecystic fluid: None. Sonographic Henderson sign: Absent. Pancreas Normal as visualized. Spleen Splenomegaly: None. Craniocaudal length: 11.8 cm. Right kidney: Normal. Hydronephrosis: None. Size: 9.6 cm x 4.6 cm x 4.0 cm Left kidney: Normal. Hydronephrosis: None. Size: 9.8 cm x 4.4 cm x 4.7 cm. Abdominal aorta and IVC Visualized portions are normal. Ascites: None. US/US abdomen complete* [id number] IMPRESSION: 1. Mild hepatomegaly with coarse echogenicity likely due to fatty infiltration . 2. Normal gallbladder. No cholelithiasis. 3. Normal common bile duct 4. No hydronephrosis in either kidney.
== END 2022-06-19 08:13 | disposition home or self-care (01) ==
LOC: RAD 08:13
PROVIDERS: PCP Nurse Practitioner Family; Visit Provider Internal Medicine Pulmonary Disease
DX: R14.0 Abdominal distension (gaseous) (principal); R16.0 Hepatomegaly, not elsewhere classified
CPT/HCPCS: 76700

== ENCOUNTER → 2022-07-01 09:01 | Outpatient (BNVA) | payer MEDICAID, SELFPAY | PROVIDERS: PCP Nurse Practitioner Family; Referring Provider Orthopaedic Surgery; Visit Provider Student in an Organized Health Care Education/Training Program | DX: G56.22 Lesion of ulnar nerve, left upper limb (principal) | CPT/HCPCS: 73080 ==

== ENCOUNTER 2022-07-11 07:48 | Outpatient (CLI) | payer OTHER, SELFPAY ==
--- NOTE | 2022-07-11 08:00 | USCV_ITS ---
Hardik Amber Age: 32 Gender: F : 1990 Exam Date: 07/11/2022 08:10 Ordering Phys: Natty Nguyen MD ([email or web address]) Technologist: Miguelina Washington [place] [facility] [place]: tachy, hisoty MVP BP: 118 / 80 HR: 101 Rhythm: Sinus Technical Quality: Fair MEASUREMENTS (Male / Female) Normal Values 2D ECHO LV Diastolic Diameter PLAX 3.7 cm 4.2 - 5.9 / 3.9 - 5.3 cm LV Systolic Diameter PLAX 2.6 cm IVS Diastolic Thickness 1.2 cm 0.6 - 1.0 / 0.6 - 0.9 cm IVS Systolic Thickness 1.6 cm LVPW Diastolic Thickness 1.0 cm 0.6 - 1.0 / 0.6 - 0.9 cm LVPW Systolic Thickness 1.3 cm LVOT Diameter 2.1 cm LV Ejection Fraction 2D Teich 57.5 % LV Ejection Fraction MOD 2C 54.8 % LV Ejection Fraction 2C AL 55.0 % LA Diameter 2.6 cm LA Width 2.1 cm LA Height 3.7 cm RA Width 2.9 cm RA Height 3.5 cm Aorta at Sinotubular Diameter 2.5 cm IVC Diameter 1.8 cm M-MODE MV E Point Septal Separation 0.4 cm DOPPLER AV Peak Velocity 97.0 cm/s LVOT Peak Velocity 79.0 cm/s AV Area Cont Eq vti 3.9 cm squared AV Area Cont Eq pk 2.8 cm squared MV Peak Velocity 94.0 cm/s MV Area PHT 5.6 cm squared Mitral E to A Ratio 2.1 MV E' Velocity 95.0 cm/s TR Peak Velocity 84.0 cm/s TR Peak Gradient 2.8 mmHg Right Atrial Pressure 3.0 mmHg Pulmonary Artery Systolic Pressu 5.8 mmHg PV Peak Velocity 72.0 cm/s RV Acceleration Time 0.2 s RV Ejection Time 0.3 s RV AcT/ET 0.6 FINDINGS Left Ventricle Normal left ventricular cavity size. Normal left ventricular systolic function. Left ventricular ejection fraction is estimated at 60-65 %. No diagnostic regional wall motion abnormalities. Right Ventricle Normal right ventricular size and systolic function. RVSP could not be calculated due to incomplete tricuspid regurgitation velocity profile. Right Atrium Normal right atrial size. Left Atrium Left atrium not well visualized. Normal left atrial size. Mitral Valve Mildly thickened mitral valve. No mitral valve prolapse. No mitral valve stenosis. No mitral valve regurgitation. Aortic Valve Structurally normal trileaflet aortic valve. No aortic valve stenosis. No aortic valve regurgitation. Tricuspid Valve Structurally normal tricuspid valve. No tricuspid valve stenosis. Trace tricuspid valve regurgitation. Pulmonic Valve Structurally normal pulmonic valve. No pulmonary valve stenosis. Trace pulmonary valve regurgitation. Pericardium No pericardial effusion. Aorta Normal size aortic root and proximal ascending aorta. IVC Normal IVC dimension with >50% respiratory change of the inferior vena cava. CONCLUSIONS 1. Normal left ventricular cavity size and systolic function. Left ventricular ejection fraction is estimated at 60-65 %. No diagnostic regional wall motion abnormalities. 2. Normal right ventricular size and systolic function. 3. No significant valvular abnormality. 4. No prior similar studies to compare. Natty Nguyen MD (Electronically Signed) Final Date: 14 July 2022 13:06 S
[2022-07-11] MEDS: perflutren protein-a microsphr 0.22 mg/mL SDV 3 mL IV (09:37)
== END 2022-07-11 07:49 | disposition home or self-care (01) ==
LOC: RAD 07:49
PROVIDERS: PCP Nurse Practitioner Family; Visit Provider Internal Medicine Cardiovascular Disease
DX: R00.0 Tachycardia, unspecified (principal); I34.1 Nonrheumatic mitral (valve) prolapse
CPT/HCPCS: C8929

== ENCOUNTER 2022-07-11 07:48 | Outpatient (CLI) | payer MEDICAID, SELFPAY ==
--- NOTE | 2022-07-11 08:30 | CT_ITS ---
WS: [id number] CT chest wo con [id number] REASON FOR EXAM: HRCT r/o interstitial lung disease IV CONTRAST ADMINISTERED: None. TOTAL EXAM DLP: 2808.[address] scans at [facility] use at least one of these dose optimization techniques: automat ed exposure control; mA and/or kV adjustment per patient size (includes targeted exams where dose is matched to clinical indication); or iterative reconstruction. FINDINGS: No mediastinal or hilar adenopathy or mass. No significant lung nodule or lung mass. No infiltrates. Normal airways. No interstitial lung disease identified. No pleural abnormality. Moderate thoracic scoliosis convex right. Pectus excavatum. CT/CT chest wo con [id number] IMPRESSION: No significant lung abnormality.
== END 2022-07-11 07:49 | disposition home or self-care (01) ==
LOC: RAD 07:49
PROVIDERS: PCP Nurse Practitioner Family; Visit Provider Internal Medicine Pulmonary Disease
DX: J84.9 Interstitial pulmonary disease, unspecified (principal)
CPT/HCPCS: 71250; 99204; 99214

== ENCOUNTER 2022-07-16 07:47 | Day surgery (SDC) | payer MEDICAID, SELFPAY ==
[2022-07-16] VITALS (7 sets, daily range): BP systolic 104–132; BP diastolic 68–94; PULSE 99–119; RESP 12–20; TEMP 36.1–37.2; O2SAT 95–100
[2022-07-16] MEDS: acetaminophen 1,000 MG/100 ML PIGGYBACK 400 MG IV (08:40)
[2022-07-16] MEDS: sodium chloride 0.9% 1,000 ML 30 ML IV (08:50)
[2022-07-16] MEDS: ketorolac 30 mg/mL INJ IVP (08:51)
--- NOTE | 2022-07-16 08:51 | W.PM.OPSUD ---
Surgery/Procedure H&P Update DATE OF PROCEDURE: July 16, 2022 DATE H&P PERFORMED: 07/01/22 CHANGES TO PREVIOUS DOCUMENTATION: None PREOP DIAGNOSIS: Left Cubital Tunnel Syndrome with Ulnar nerve subluxation PRIMARY INDICATION FOR PROCEDURE: Left cubital tunnel syndrome with ulnar nerve subluxation PLANNED PROCEDURE: Operation Date: 07/16/22 09:30 Proposed Procedures p LEFT CUBITAL TUNNEL RELEASE WITH POSSIBLE ULNAR NERVE TRANSPOSITION 50253, 81026,M25.529(Left) - Jose Hinton DO
--- NOTE | 2022-07-16 09:25 | ANES.PREANE2 ---
Pre-Anesthetic Assessment Height/Weight: Height 1.7 m Weight 95.708 kg Temp Pulse Resp BP Pulse Ox O2 Del Method 97.9 F 113 H 18 104/68 100 07/16/22 08:18 07/16/22 08:18 07/16/22 08:18 07/16/22 08:18 07/16/22 08:18 07/16/22 08:20 Preop Diagnosis: Left Cubital Tunnel Syndrome with Ulnar nerve subluxation Operation Date: 07/16/22 09:30 Proposed Procedures p LEFT CUBITAL TUNNEL RELEASE WITH POSSIBLE ULNAR NERVE TRANSPOSITION 03195, 39037,M25.529(Left) - Jose Bremer, DO Familial anesthetic complications: none Was Beta Maryanne taken within 24 hours: N/A Was Clonidine taken within 24 hours: N/A Last intake: Intake Last Liquid Date 07/15/22 Last Liquid Time 19:00 Last Solid Date 07/15/22 Last Solid Time 15:30 Social No alcohol and No tobacco (just quit smoking) Exam alert, oriented x 3, clear to auscultation bilaterally and regular rate & rhythm Airway Mallampati: Class I Dentition: full Pulmonary Asthma and Chronic Obstructive Pulmonary Disease CV/HEM Arrythmia (tachycardia) normal echo GI Gastroesophageal Reflux Disease Metabolic Thyroid Disease [facility] [place]/[facility]el Rheumatoid arthritis, TMJ (patient informed airway manipulation may exacerbate pain of TMJ) Anesthetic Plan ASA status: 3 Anesthesia: MAC Risk of > 500 ml blood loss (7ml/kg in children): No Medications/Allergies Home Medications Medication Instructions Recorded Confirmed Last Taken Type minocycline 50 mg tablet 50 mg PO BID 09/24/21 07/16/22 07/16/22 History cholecalciferol (vitamin D3) 50 2,000 unit PO DAILY #90 tabs 12/04/21 07/16/22 07/16/22 Rx mcg (2,000 unit) tablet multivitamin 1 tab PO DAILY 03/20/22 07/15/22 Unknown History pregabalin 150 mg capsule (Lyrica) 150 mg PO BID 03/20/22 07/16/22 07/16/22 History psyllium husk 0.52 gram capsule 0.52 g PO DAILY 03/20/22 07/16/22 07/16/22 History (Fiber-Caps (psyllium husk)) glycopyrrolate 9 mcg-formoterol 2 puff inhalation BID #10.7 grams 04/22/22 07/16/22 07/16/22 Rx 4.8 mcg HFA aerosol inhaler (Bevespi Aerosphere) adalimumab 40 mg/0.8 mL 40 mg (0.8 mL) SUBCUT Q14D #2 ea 05/13/22 07/15/22 Unknown Rx subcutaneous pen kit (Humira Pen) leflunomide 20 mg tablet 20 mg PO DAILY #30 tabs 05/13/22 07/16/22 07/16/22 Rx pantoprazole 40 mg tablet,delayed See Rx Instructions PO DAILY #30 05/13/22 07/16/22 07/16/22 Rx release tabs fluticasone propionate 50 2 spray intranasal DAILY 05/28/22 07/15/22 Unknown History mcg/actuation nasal spray,suspension (Allergy Relief (fluticasone)) levocetirizine 5 mg tablet 5 mg PO DAILY 05/28/22 07/15/22 Unknown History levothyroxine 25 mcg tablet 25 mcg PO DAILY #90 tabs 05/28/22 07/16/22 07/16/22 Rx metoprolol tartrate 25 mg tablet 25 mg PO TID 05/28/22 07/16/22 Unknown History albuterol sulfate 90 mcg/actuation 2 puff inhalation Q6H PRN 06/03/22 07/15/22 Unknown History aerosol inhaler (Ventolin HFA) Shortness Of Breath amitriptyline 25 mg tablet 25 mg PO BEDTIME 06/03/22 07/16/22 07/15/22 History levalbuterol tartrate 45 2 inh inhalation Q6H PRN shortness 06/18/22 07/15/22 Unknown Rx mcg/actuation aerosol inhaler of breath or wheezing #15 grams (Xopenex HFA) diltiazem HCl 240 mg capsule,24 240 mg PO DAILY #30 caps 06/24/22 07/15/22 Unknown Rx hr,extended release duloxetine 60 mg capsule,delayed 120 mg PO .morning #60 caps 07/11/22 07/16/22 07/15/22 Rx release (Cymbalta) hydroxychloroquine 200 mg tablet 200 mg PO BID 07/15/22 07/16/22 07/16/22 History varenicline 0.5 mg (11)-1 mg (42) 1 ea PO PER PKG DIR 07/15/22 07/16/22 07/15/22 History tablets in a dose pack (Chantix Starting Month Box) Allergies Allergy/AdvReac Type Severity Reaction Status Date / Time No Known Allergies Allergy Verified 07/11/22 10:42 Current Medications Generic Name Dose Route Start Last Admin Trade Name Neal PRN Reason Stop Dose Admin Sodium Chloride 1,000 mls @ 30 mls/hr 07/16/22 08:00 07/16/22 08:50 Sodium Chloride 0.9% IV 07/17/22 07:59 30 mls/hr .Q24H ANDREINA Administration PFSH Anesthesia Medical History (Updated 07/12/22 @ 12:40 by Natty Nguyen MD) ASCUS with positive high risk HPV Chronic post-traumatic stress disorder R/O Depersonalization and derealization Cubital tunnel syndrome on left Family history of psoriasis in mother Fibromyalgia Generalized anxiety disorder High risk medication use History of ADHD diagnosed as a child, history of taking Ritalin Immunization counseling Inflammatory arthritis Joint pain Major depressive disorder, recurrent episode, moderate with anxious distress Muscle pain Obsessive-compulsive disorder Psychiatric care Seronegative rheumatoid arthritis of both hands TMJ arthritis Surgical History (Updated 07/12/22 @ 12:40 by Natty Nguyen MD) Previous back surgery x2 MOBLEY RODS - HARDWARE REMOVED IN 2007 S/P hernia repair 2010, umbilical S/P thyroid surgery S/P tonsillectomy Status post bilateral salpingectomy Laparoscopic. Performed per Dr. Mayers at [place], [place] Family History Mother Cervical cancer dx at unknown age Thyroid condition Hypertension Heart disease Grandmother Ovarian cancer maternal Social History Smoking and tobacco status: current every day smoker cigarettes Packs smoked per day: 0.5 Years cigarettes smoked: 8 Alcohol intake: current Alcohol intake frequency: holidays/special occasions only Alcohol type: wine and hard liquor Female Reproductive History Date of last menstrual period: 12/20/19 Data Anesthesia Cardiac Studies: Echocardiogram 07/11/22 Holter Monitor 04/02/22
[2022-07-16] MEDS: ceFAZolin 2,000 MG in sodium chloride 0.9% (plus) 50 ML 100 MG IV (09:48)
[2022-07-16] MEDS: lidocaine 1% INJ 50 mL INJECTION (10:19)
--- NOTE | 2022-07-16 11:29 | P.OP_ITS ---
Brief Operative Note Date of procedure: 07/16/22 Pre-op diagnosis: Left cubital tunnel syndrome with ulnar nerve subluxation Post-op diagnosis: same Procedure Done: Left cubital tunnel syndrome with ulnar nerve transposition Surgeon: Jose Hinton Estimated blood loss (mL): 15 Complications: None Post-op Plan: Patient recovering in PACU. Pain well controlled. Splint on and in place. Will be given appropriate discharge instructions as well as pain medication and antinausea medication. We will follow-up in the office in 2 weeks. We will have her see OT hand therapy next week. Condition: stable Disposition: same day Coding Level of Care Code Acute Munitions Handler Supervisor for Kulwant Cuevas
--- NOTE | 2022-07-16 11:34 | PM.PACU ---
PACU note Narrative: Patient evaluated in PACU. Splint on and in place and dressing clean dry and intact. Pain controlled. Patient wiggling fingers. Patient sensation intact light touch. Fingers warm well perfused. Exam: awake (See narrative for detailed exam) Disposition: discharged
[2022-07-16] MEDS: ondansetron 2 mg/ML SDV 2 mL 4 MG IVP (11:35)
[2022-07-16] MEDS: metoclopramide 5 mg/mL SDV 2 mL 10 MG IVP (12:15)
[2022-07-16] MEDS: TRAMadol 50 mg Tablet PO (12:39)
--- NOTE | 2022-07-16 13:49 | P.OP_ITS ---
Operative Report Date of procedure: July 16, 2022 Pre-op diagnosis: Preop Diagnosis Left Cubital Tunnel Syndrome with Ulnar nerve subluxation Post-op diagnosis: same Post-op findings: See operative note Procedure done: Left cubital tunnel release Left ulnar nerve transposition at the elbow Surgeon: Jose Hinton DO Estimated blood loss: 15 cc 47 minutes IV fluids: See anesthesia record Complications: None Findings: See operative report narrative Condition: stable Disposition: same day Brief History: Amber is a pleasant 32-year-old female was seen evaluated in the outpatient setting for left ulnar nerve neuropathy at the elbow. She had EMG findings consistent with this. Was initially seen evaluated by my spine partner she was referred to my office given her cubital tunnel syndrome. On my examination in the office her findings are consistent with this preoperative diagnosis however she does of note have a significant palpable ulnar nerve subluxation when taken through range of motion. We had detailed discussion in office about continued nonoperative intervention versus operative intervention. She understands the risk benefits complications alternatives to surgical and nonsurgical treatment options. She understands the risks include but not limited to make it better, make it worse, infection, permanent injury to nerve, decreased function and sensation to the hand with persistent weakness. Given these risks she understands and agrees to proceed with current plan. Of note in the office she did already have evidence of intrinsic motor weakness and as a result my recommendation was for left ulnar nerve cubital tunnel release with ulnar nerve transposition as she already has a palpable physical examination of subluxating ulnar nerve. She understands agrees with current plan. All questions answered. Procedure: Patient was seen and evaluated in the preoperative holding area. The consent that was filled out in office was reviewed with patient and confirmed to be appropriate for left ulnar nerve cubital tunnel release and ulnar nerve transposition. Correct extremity was then marked. Patient was seen evaluated by the preoperative team as well as anesthesia department. Once cleared for surgery patient was then taken to the operative suite and transported onto the operative table all bony prominences were well-padded and patient was secured to the table. Left upper extremity was placed on an armboard. Patient then underwent anesthesia per the anesthesia department. Patient received appropriate preoperative antibiotics. Patient's left upper extremity was then prepped and draped in standard orthopedic fashion. The left upper extremity was then placed into a sterile tourniquet to the left upper arm. This point a final timeout was performed. Esmarch tourniquet was used to exsanguinate the extremity and was insufflated to 250 mmHg. Standard curvilinear incision was made centering over the ulnar nerve between the medial epicondyle and olecranon process. Sharp scalpel excision through skin and subcutaneous tissue was performed. Once I encountered subcutaneous tissue I then utilized dissection scissors to spread in the path of the MA BC and care was made to protect any nerve branches throughout this case. I then utilized a scalpel to complete my dissection directly on over to the flexor pronator mass and elevated this fat tissue directly off of the fascia. Next it was clearly evident in range of motion that patient had a subluxating ulnar nerve. There was significant scar tissue all around the nerve at the medial epicondyle at the level with which this was subluxating as well as a very tight band of Stinson's ligament. Given this was directly visualized I started my dissection of the ulnar nerve at this position. I utilized Littler dissection scissors and decompress the nerve completely and proximally and utilized blunt dissection to make sure there was no entrapment proximally in the arcade of [place]. Once decompressed proximally I then traced the nerve as it entered the FCU fascia aponeurosis and completed by decompression and ulnar nerve neurolysis distally. At this point the ulnar nerve was subluxating over the medial epicondyle and plan for ulnar nerve transposition was made. I thoroughly irrigated the nerve throughout the case to prevent it from drying out and utilized a Tristian drain around the nerve to help keep the nerve protected during my dissection for transposition. Of note the ulnar nerve had significant irritation and inflammation around Stinson's ligament at the level of the medial epicondyle with noticeable amounts of scar tissue which were freed from the nerve given the constant subluxation. Next while protecting the nerve as well as care to not injure any venous structures I then excised the intermuscular septum with bipolar electrocautery. This allowed for there to be no entrapment proximally with my transposition. Next I then performed my standard see flap into the fascia. This created a large thick fascial band that would be sutured to secure the ulnar nerve when its been transposed. Once the incision was made just through the fascia I then mobilized just the fascia and freed the muscle belly off of this. I then sequentially excised the T and Y shaped fascial bands throughout the flexor pronator mass to prevent any type of bandage strip structure irritating the transposition. At this point I had only soft tissue and muscle belly with which the ulnar nerve could rest. I had to do a small excision of the muscle belly distally to create a nice trough for the nerve to lie. At this point I utilized the [place] to mobilize the nerve and this was transposed into the flexor pronator insertion. There was no evidence of kinking this was significantly redundant and lax with no signs of tension or entrapment. I then utilized a 3-0 Ethibond suture and approximated my see flaps that was created into the fascia of the muscle and these were secured with horizontal interrupted mattress stitches. I was able to place 2 fingers under the repair with no evidence of entrapment and the elbow was taken through range of motion and no areas of entrapment or kinking were noted on the nerve and the nerve was redundant relaxed in all ranges of motion. This completed my ulnar nerve decompression of the cubital tunnel as well as ulnar nerve transposition. Wound bed was then thoroughly irrigated. Tourniquet was deflated. Maintained exact hemostasis with bipolar electrocautery. Given that the wound bed was inherently dry felt no need for drain placement. As result the skin was reapproximated with interrupted Vicryl subcutaneous suture 3 oh. I next utilized a running horizontal mattress stitch with 3-0 nylon. Extremity was then cleaned and the incision was then covered with Xeroform 4 x 4's ABD Curlex and soft roll and a posterior long-arm splint was then applied with an Cristopher wrap. Patient was then awakened from anesthesia and taken to PACU in stable condition. Disposition: Patient taken to PACU in stable condition. Patient given appropriate discharge instructions as well as pain medication. We will get her in with OT hand therapy for splint takedown gentle range of motion and nerve gliding exercises to the left upper extremity within the next week. She will see me in office in 2 weeks. She understands she has any questions she can contact the office.
--- NOTE | 2022-07-16 15:10 | ANE.PACU2 ---
Inpatient post-anesthesia follow up: Airway intact: Yes Vital signs: Temperature 97.1 F Pulse Rate 99 Respiratory Rate 18 Blood Pressure 132/88 Pulse Oximetry 95 Oxygen Delivery Me thod Room Air Oxygen Flow Rate Fraction of Inspir ed Oxygen Hydration adequate: Yes Nausea and vomiting: No Pain level: 1 Mental status: Baseline
== END 2022-07-16 13:10 | disposition home or self-care (01) ==
PROVIDERS: PCP Nurse Practitioner Family; Visit Provider Student in an Organized Health Care Education/Training Program
PROC: (CPT 64718; principal; 2022-07-16 09:30)
DX: G56.22 Lesion of ulnar nerve, left upper limb (principal); J44.9 Chronic obstructive pulmonary disease, unspecified; K21.9 Gastro-esophageal reflux disease without esophagitis; M06.9 Rheumatoid arthritis, unspecified; Z87.891 Personal history of nicotine dependence; F41.1 Generalized anxiety disorder; M79.7 Fibromyalgia
CPT/HCPCS: 64718; 81025; J1100; J1170; J1885; J2405; J2704; J2765; J2795; J3010; J7030

== ENCOUNTER 2022-07-22 06:00 | Outpatient (RCR) | payer MEDICAID, SELFPAY | END 2022-07-25 23:59 | disposition home or self-care (01) | LOC: SOT 06:00 | PROVIDERS: PCP Nurse Practitioner Family; Visit Provider Student in an Organized Health Care Education/Training Program | DX: G56.22 Lesion of ulnar nerve, left upper limb (principal) | CPT/HCPCS: 97110; 97140; 97166 ==

== ENCOUNTER → 2022-07-25 09:02 | Outpatient (BNVA) | payer MEDICAID, SELFPAY | PROVIDERS: PCP Nurse Practitioner Family; Visit Provider Internal Medicine | DX: E89.0 Postprocedural hypothyroidism (principal); R53.83 Other fatigue; E03.9 Hypothyroidism, unspecified | CPT/HCPCS: 84439; 84443 ==

== ENCOUNTER 2022-07-26 06:00 | Outpatient (RCR) | payer MEDICAID, SELFPAY | END 2022-08-25 23:59 | disposition home or self-care (01) | LOC: SOT 06:00 | PROVIDERS: PCP Nurse Practitioner Family; Visit Provider Student in an Organized Health Care Education/Training Program | DX: G56.22 Lesion of ulnar nerve, left upper limb (principal) | CPT/HCPCS: 97110; 97140 ==

== ENCOUNTER → 2022-08-12 14:44 | Outpatient (BNVA) | payer MEDICAID, SELFPAY | PROVIDERS: PCP Nurse Practitioner Family; Visit Provider Internal Medicine Rheumatology | DX: M06.041 Rheumatoid arthritis without rheumatoid factor, right hand (principal); Z79.899 Other long term (current) drug therapy; M06.042 Rheumatoid arthritis without rheumatoid factor, left hand; G56.22 Lesion of ulnar nerve, left upper limb | CPT/HCPCS: 36415; 80076; 82565; 85025; 86140 ==

== ENCOUNTER 2022-08-26 06:00 | Outpatient (RCR) | payer MEDICAID, SELFPAY | END 2022-09-24 23:59 | disposition home or self-care (01) | LOC: SOT 06:00 | PROVIDERS: PCP Nurse Practitioner Family; Visit Provider Student in an Organized Health Care Education/Training Program | DX: M54.9 Dorsalgia, unspecified (principal); G89.29 Other chronic pain | CPT/HCPCS: 97022; 97035; 97110; 97140 ==

== ENCOUNTER 2022-08-26 06:00 | Outpatient (RCR) | payer MEDICAID, SELFPAY | END 2022-09-24 23:59 | disposition home or self-care (01) | LOC: SPT 06:00 | PROVIDERS: PCP Nurse Practitioner Family; Visit Provider Orthopaedic Surgery | DX: M54.9 Dorsalgia, unspecified (principal); G89.29 Other chronic pain | CPT/HCPCS: 97110; 97161; 97530 ==

== ENCOUNTER → 2022-09-10 13:39 | Outpatient (BNVA) | payer MEDICAID, SELFPAY | PROVIDERS: PCP Nurse Practitioner Family; Visit Provider Nurse Practitioner Family | DX: E66.9 Obesity, unspecified (principal) | CPT/HCPCS: 83036 ==

== ENCOUNTER 2022-09-25 14:05 | Outpatient (CLI) | payer MEDICAID, SELFPAY ==
[2022-09-25 14:53] LABS: Eosinophils # 0.2 10^3/uL (0.0-0.8); Hematocrit 40.4 % (37.0-47.0); Lymphocytes # 1.6 10^3/uL (0.8-4.8); Lymphocytes % 40.3 %; Mean Corpuscular HGB Conc 32.2 g/dL (30.0-36.0); Mean Corpuscular Hemoglobin 28.1 pg (28.0-34.0); Mean Corpuscular Volume 87.3 fl (81-99); Monocytes # 0.7 10^3/uL (0.2-0.9); Monocytes % 18.5 %; Neutrophils # 1.45 10^3/uL (1.8-7.7); Neutrophils % 36.2 %; Nucleated Red Blood Cells % 0 %; Platelet Count 163 10^3/cmm (130-400); Red Blood Count 4.63 10^6/uL (4.1-5.3); Red Cell Distribution Width 13.5 % (12.1-15.1)
[2022-09-25 15:20] LABS: Free T4 Free Thyroxine 0.72 ng/dL (0.82-1.77); Thyroid Stimulating Hormone 2.36 uIU/mL (0.27-4.20)
[2022-09-26 17:11] LABS: Thyroglobulin AB 1 IU/mL (< or = 1)
[2022-09-26 18:30] LABS: Thyroid Peroxidase Antobodies 1 IU/mL (<9)
== END 2022-09-25 14:06 | disposition home or self-care (01) ==
LOC: LAB 14:07
PROVIDERS: Internal Medicine; PCP Nurse Practitioner Family; Visit Provider Internal Medicine Rheumatology
DX: E03.8 Other specified hypothyroidism (principal); R79.89 Other specified abnormal findings of blood chemistry
CPT/HCPCS: 36415; 84439; 84443; 85025; 86376; 86800

== ENCOUNTER → 2022-10-01 08:21 | Outpatient (BNVA) | payer MEDICAID, SELFPAY | PROVIDERS: PCP Nurse Practitioner Family; Visit Provider Nurse Practitioner Family | DX: R51.9 Headache, unspecified (principal); G89.29 Other chronic pain; E16.2 Hypoglycemia, unspecified | CPT/HCPCS: 80053; 80061 ==

== ENCOUNTER 2022-11-11 06:00 | Outpatient (CLI) | payer MEDICAID, SELFPAY ==
[2022-11-11 22:30] LABS: Free T4 Free Thyroxine 0.93 ng/dL (0.82-1.77); Thyroid Stimulating Hormone 1.76 uIU/mL (0.27-4.20)
== END 2022-11-11 06:01 | disposition home or self-care (01) ==
LOC: LAB 11-27 09:30
PROVIDERS: PCP Nurse Practitioner Family; Visit Provider Internal Medicine
DX: E07.9 Disorder of thyroid, unspecified (principal)
CPT/HCPCS: 36415; 84439; 84443

== ENCOUNTER 2022-11-12 10:15 | Outpatient (CLI) | payer MEDICAID, SELFPAY ==
--- NOTE | 2022-11-12 10:15 | MR_ITS ---
WS: [id number] MRI HEAD WITHOUT AND WITH GADOLINIUM ENHANCEMENT WITH ATTENTION TO THE PITUITARY WITH DYNAMIC PROTOCO L. TECHNIQUE: Sagittal T1, T2 axial, T2 axial FLAIR, axial susceptibility weighted imaging, axial diffus ion weighted images, and coronal T2 images were obtained. Pre and post-T1 axial and post T1 coronal i mages. ADC and FSPGR images. High-resolution pituitary images obtained with dynamic pituitary protoco l. CLINICAL INFORMATION: central hypothyoidism abnormality COMPARISON: CT head 11 FINDINGS: No evidence of restricted diffusion to suggest acute ischemia. Ventricular system and basal cisterns are patent. Normal gao-white differentiation. Normal posterior fossa. Normal vascular flow voids at the skull base. No extra-axial fluid collections. No evidence of mass or mass effect. Mild mucosal thickening in the paranasal sinuses. Mastoid air cells are well aerated. No hemosiderin on the susceptibility weighted images. Benign incidental venous angioma RIGHT cerebellum. Normal dura l venous sinuses. Normal optic chiasm and pituitary infundibulum. Normal cavernous sinuses and Meckel 's cave. No evidence of suprasellar mass. Normal pituitary enhancement. No evidence of microadenoma. No other suspicious findings. MR/MR pituitary wo/w con* [id number] IMPRESSION: 1. Normal pituitary enhancement. No evidence of microadenoma. 2. No evidence of intrasellar or suprasellar mass. 3. Normal optic chiasm and pituitary infundibulum. 4. Benign incidental venous angioma RIGHT cerebellum. 5. No other suspicious findings.
[2022-11-12] MEDS: gadobenate dimeglumine 20 mL vial IV (11:12)
== END 2022-11-12 10:16 | disposition home or self-care (01) ==
LOC: RAD 10:15
PROVIDERS: PCP Nurse Practitioner Family; Visit Provider Internal Medicine
DX: E03.8 Other specified hypothyroidism (principal); E23.7 Disorder of pituitary gland, unspecified; Q28.3 Other malformations of cerebral vessels
CPT/HCPCS: 70553; A9577

== ENCOUNTER → 2022-11-17 09:55 | Outpatient (BNVA) | payer MEDICAID, SELFPAY | PROVIDERS: PCP Nurse Practitioner Family; Visit Provider Anesthesiology Pain Medicine | DX: M79.671 Pain in right foot (principal) | CPT/HCPCS: 73630 ==

== ENCOUNTER 2022-11-20 11:40 | Outpatient (CLI) | payer MEDICAID, SELFPAY ==
[2022-11-20 12:10] LABS: Basophils % 0.6 %; Eosinophils # 0.1 10^3/uL (0.0-0.8); Eosinophils % 2.3 %; Hematocrit 42.1 % (37.0-47.0); Hemoglobin 13.5 g/dL (11.5-15.3); Lymphocytes # 1.6 10^3/uL (0.8-4.8); Lymphocytes % 29.6 %; Mean Corpuscular HGB Conc 32.1 g/dL (30.0-36.0); Mean Corpuscular Hemoglobin 27.6 pg (28.0-34.0); Mean Corpuscular Volume 85.9 fl (81-99); Mean Platelet Volume 12.1 fL (7.4-10.4); Monocytes # 0.6 10^3/uL (0.2-0.9); Monocytes % 10.5 %; Neutrophils # 2.98 10^3/uL (1.8-7.7); Neutrophils % 56.8 %; Nucleated Red Blood Cells % 0 %; Platelet Count 159 10^3/cmm (130-400); Red Cell Distribution Width 13.7 % (12.1-15.1); White Blood Count 5.2 10^3/uL (4.0-10.0)
[2022-11-20 12:17] LABS: Erythrocyte Sedimentation Rate < 1 mm/hr (0-15)
[2022-11-20 12:46] LABS: Alanine Aminotransferase 20 U/L (0-33); Albumin Level 3.9 g/dL (3.5-5.2); Alkaline Phosphatase 79 U/L (35-105); Aspartate Amino Transferase 20 U/L (0-32); C Reactive Protein 4.4 mg/L (0.0-4.9); Creatine Phosphokinase 65 U/L (26-192); Globulin 2.5 g/dL (1.3-4.6); Glomerular Filtration Rate 57.2 mL/min (90-130); Thyroid Stimulating Hormone 1.88 uIU/mL (0.27-4.20); Total Bilirubin 0.2 mg/dL (0.15-1.2); Total Protein 6.4 g/dL (6.6-8.7)
[2022-11-20 13:12] LABS: Free T4 Free Thyroxine 1.27 ng/dL (0.82-1.77)
[2022-11-21 12:55] LABS: Aldolase 3.2 U/L (< OR = 8.1)
== END 2022-11-20 11:41 | disposition home or self-care (01) ==
LOC: LAB 11:42
PROVIDERS: PCP Nurse Practitioner Family; Visit Provider Internal Medicine Rheumatology
DX: M06.041 Rheumatoid arthritis without rheumatoid factor, right hand (principal); M06.042 Rheumatoid arthritis without rheumatoid factor, left hand; Z79.899 Other long term (current) drug therapy
CPT/HCPCS: 80076; 82085; 82550; 82565; 84439; 84443; 85025; 85651; 86140

== ENCOUNTER → 2022-11-24 10:53 | Outpatient (BNVA) | payer MEDICAID, SELFPAY | PROVIDERS: PCP Nurse Practitioner Family; Visit Provider Podiatrist Foot & Ankle Surgery | DX: S92.321A Displaced fracture of second metatarsal bone, right foot, initial encounter for closed fracture (principal); S92.334A Nondisplaced fracture of third metatarsal bone, right foot, initial encounter for closed fracture; W10.8XXA Fall (on) (from) other stairs and steps, initial encounter | CPT/HCPCS: 73630 ==

== ENCOUNTER → 2022-12-08 09:12 | Outpatient (BNVA) | payer MEDICAID, SELFPAY | PROVIDERS: PCP Nurse Practitioner Family; Visit Provider Podiatrist Foot & Ankle Surgery | DX: S92.324D Nondisplaced fracture of second metatarsal bone, right foot, subsequent encounter for fracture with routine healing (principal); S92.334D Nondisplaced fracture of third metatarsal bone, right foot, subsequent encounter for fracture with routine healing; W10.8XXD Fall (on) (from) other stairs and steps, subsequent encounter | CPT/HCPCS: 73630 ==

== ENCOUNTER 2022-12-24 06:00 | Outpatient (RCR) | payer MEDICAID, SELFPAY | END 2023-01-23 23:59 | disposition home or self-care (01) | LOC: SPT 06:00 | PROVIDERS: PCP Nurse Practitioner Family; Visit Provider Physician Assistant | DX: M54.50 Low back pain, unspecified (principal); G89.29 Other chronic pain | CPT/HCPCS: 97110; 97162 ==

== ENCOUNTER → 2022-12-24 10:41 | Outpatient (BNVA) | payer OTHER, SELFPAY | PROVIDERS: PCP Nurse Practitioner Family; Visit Provider Podiatrist Foot & Ankle Surgery | DX: S92.324D Nondisplaced fracture of second metatarsal bone, right foot, subsequent encounter for fracture with routine healing (principal); S92.334D Nondisplaced fracture of third metatarsal bone, right foot, subsequent encounter for fracture with routine healing; W10.8XXD Fall (on) (from) other stairs and steps, subsequent encounter | CPT/HCPCS: 73630 ==

== ENCOUNTER 2023-01-13 10:56 | Outpatient (CLI) | payer MEDICAID, SELFPAY ==
[2023-01-13 12:08] LABS: Free T4 Free Thyroxine 1.27 ng/dL (0.82-1.77); Thyroid Stimulating Hormone 1.68 uIU/mL (0.27-4.20)
== END 2023-01-13 10:57 | disposition home or self-care (01) ==
LOC: LAB 10:58
PROVIDERS: PCP Nurse Practitioner Family; Visit Provider Internal Medicine
DX: E07.9 Disorder of thyroid, unspecified (principal); E23.7 Disorder of pituitary gland, unspecified
CPT/HCPCS: 36415; 84439; 84443; 87624

== ENCOUNTER → 2023-01-20 14:36 | Outpatient (BNVA) | payer MEDICAID, SELFPAY | PROVIDERS: PCP Nurse Practitioner Family; Visit Provider Podiatrist Foot & Ankle Surgery | DX: S92.324D Nondisplaced fracture of second metatarsal bone, right foot, subsequent encounter for fracture with routine healing (principal); S92.334D Nondisplaced fracture of third metatarsal bone, right foot, subsequent encounter for fracture with routine healing; W10.8XXD Fall (on) (from) other stairs and steps, subsequent encounter | CPT/HCPCS: 73630 ==

== ENCOUNTER 2023-01-24 01:00 | Outpatient (RCR) | payer MEDICAID, SELFPAY | END 2023-02-22 23:59 | disposition home or self-care (01) | LOC: SPT 01:00 | PROVIDERS: PCP Nurse Practitioner Family; Visit Provider Physician Assistant | DX: M54.50 Low back pain, unspecified (principal); G89.29 Other chronic pain | CPT/HCPCS: 97110 ==

== ENCOUNTER → 2023-03-03 12:41 | Outpatient (BNVA) | payer MEDICAID, SELFPAY | PROVIDERS: PCP Nurse Practitioner Family; Visit Provider Podiatrist Foot & Ankle Surgery | DX: S92.324D Nondisplaced fracture of second metatarsal bone, right foot, subsequent encounter for fracture with routine healing (principal); S92.334D Nondisplaced fracture of third metatarsal bone, right foot, subsequent encounter for fracture with routine healing; W10.8XXD Fall (on) (from) other stairs and steps, subsequent encounter | CPT/HCPCS: 73630 ==

== ENCOUNTER → 2023-03-16 07:26 | Outpatient (BNVA) | payer MEDICAID, SELFPAY | PROVIDERS: PCP Nurse Practitioner Family; Referring Provider Anesthesiology Pain Medicine; Visit Provider Internal Medicine | DX: R29.818 Other symptoms and signs involving the nervous system (principal); Z98.890 Other specified postprocedural states; E03.9 Hypothyroidism, unspecified | CPT/HCPCS: 36415; 82306; 82607; 82746; 83090; 83921; 84155; 84165; 84439; 84443; 85651; 86160; 86162; 86235; 86255; 86334; 86376; 86431; 86617; 86780 ==

== ENCOUNTER → 2023-03-17 07:47 | Outpatient (BNVA) | payer MEDICAID, SELFPAY | PROVIDERS: PCP Nurse Practitioner Family; Visit Provider Podiatrist Foot & Ankle Surgery | DX: S92.324G Nondisplaced fracture of second metatarsal bone, right foot, subsequent encounter for fracture with delayed healing (principal); S92.334D Nondisplaced fracture of third metatarsal bone, right foot, subsequent encounter for fracture with routine healing; W10.8XXD Fall (on) (from) other stairs and steps, subsequent encounter | CPT/HCPCS: 73630 ==

== ENCOUNTER 2023-04-03 08:16 | Outpatient (CLI) | payer MEDICAID, SELFPAY ==
--- NOTE | 2023-04-03 08:30 | US_ITS ---
WS: [id number] ULTRASOUND THYROID TECHNIQUE: Ultrasound of the thyroid. CLINICAL INFORMATION: Pituitary abnormality COMPARISON: Comparison April 2022 FINDINGS: Thyroid: History of RIGHT thyroidectomy. LEFT thyroid lobe is normal in size and echotexture. No thyr oid nodules are present. Right thyroid lobe: Removed Left thyroid lobe: 4.6 cm x 1.8 cm x 1.7 cm. Isthmus: 0.2 mm. Cervical lymphadenopathy: None. US/US thyroid [id number] IMPRESSION: 1. No significant interval changes. 2. Prior RIGHT thyroidectomy. RIGHT thyroid bed is normal in appearance. 3. Normal LEFT thyroid lobe. 4. No suspicious nodules.
--- NOTE | 2023-04-03 11:00 | MR_ITS ---
WS: [id number] MRI CERVICAL SPINE NONCONTRAST HISTORY: Neuropathy, both legs. Lethargy. COMPARISON: 04/12/2018 Technique: Multiplanar, multisequence noncontrast imaging of the cervical spine. New very slight reversal of the upper thoracic spine at the T1-2 level. There is asymmetric disc spac e narrowing at T1-2, very similar to the prior study. T1 anterolisthesis by 2 mm. No fractures or mar row edema. Signal within the cervical cord is normal. Visualized posterior fossa is unremarkable. Craniocervical junction, C1 and C2 relationship, odontoid process and soft tissues are normal. C2-C3: Normal. C3-C4: Mild disc bulging with possible tiny central disc protrusion. No stenosis. C4-C5: Limited quality due to motion. No obvious stenosis. C5-C6: Mild annular disc bulging. Limited by motion. C6-C7: Suspect small central disc protrusion. No high-grade stenosis quality is limited. C7-T1: Limited. Paraspinal soft tissue evaluation is limited by metallic artifact. MR/MR cervical spin wo con* [id number] IMPRESSION: 1. Quality of this examination is limited by metallic artifact and motion. 2. No high-grade stenosis identified within the cervical canal. No signal abno rmality in the cord. 3. Asymmetric disc space narrowing at T1-2.
== END 2023-04-03 08:17 | disposition home or self-care (01) ==
LOC: RAD 08:17
PROVIDERS: PCP Nurse Practitioner Family; Visit Provider Internal Medicine
DX: E07.9 Disorder of thyroid, unspecified (principal); E23.7 Disorder of pituitary gland, unspecified; G62.9 Polyneuropathy, unspecified; R29.818 Other symptoms and signs involving the nervous system; R53.83 Other fatigue
CPT/HCPCS: 36415; 72141; 76536; 82306; 82607; 82746; 83090; 83921; 84155; 84165; 84439; 84443; 85651; 86160; 86162; 86235; 86255; 86334; 86376; 86431; 86617

== ENCOUNTER 2023-04-09 10:00 | Outpatient (CLI) | payer MEDICAID, SELFPAY ==
--- NOTE | 2023-04-09 10:12 | MR_ITS ---
WS: [id number] MRI HEAD WITH CONTRAST TECHNIQUE: Sagittal T1, T2 axial, T2 axial FLAIR, axial susceptibility weighted imaging, axial diffus ion weighted images, and coronal T2 images were obtained. Pre and post-T1 axial and post T1 coronal i mages. ADC and FSPGR images. CLINICAL INFORMATION: R29.818 - Other symptoms and signs involving the nervous ... COMPARISON: MRI pituitary November 12, 2022 FINDINGS: No evidence of restricted diffusion to suggest acute ischemia. Ventricular system and basal cisterns are patent. No suspicious intracranial signal abnormalities. Normal gao-white differentiation. No si gnificant volume loss. Incidental venous angioma RIGHT cerebellum unchanged. Normal vascular flow voids at the skull base. N o extra axial fluid collections. No evidence of mass or mass effect. Paranasal sinuses are well aerat ed. Mastoid air cells well aerated. Normal parapharyngeal fat. Normal posterior nasopharynx. No hemosiderin on susceptibly weighted images. Normal optic chiasm and pituitary infundibulum. Normal temporal lobes and hippocampal formations. Otherwise no abnormal gadolinium enhancement. Normal dural venous sinuses. Normal sella. MR/MR head wo/w con [id number] IMPRESSION: 1. No evidence of restricted diffusion to suggest acute ischemia. 2. No suspicious intracranial signal abnormalities. 3. Incidental venous angioma RIGHT cerebellum unchanged. 4. Normal dural venous sinuses. 5. No hemosiderin. 6. No other suspicious findings.
[2023-04-09] MEDS: gadobenate dimeglumine 20 mL vial IV (10:56)
== END 2023-04-09 10:01 | disposition home or self-care (01) ==
PROVIDERS: PCP Nurse Practitioner Family; Visit Provider Psychiatry & Neurology Neurology
DX: Q28.3 Other malformations of cerebral vessels (principal)
CPT/HCPCS: 70553; A9577

== ENCOUNTER 2023-04-15 09:08 | Outpatient (CLI) | payer MEDICAID, SELFPAY ==
[2023-04-19 20:10] LABS: Glutamic Acid Decarboxylase AB <5 IU/mL (<5)
== END 2023-04-15 09:09 | disposition home or self-care (01) ==
PROVIDERS: PCP Nurse Practitioner Family; Visit Provider Psychiatry & Neurology Neurology
DX: Q79.60 Ehlers-Danlos syndrome, unspecified (principal)
CPT/HCPCS: 36415; 83519

== ENCOUNTER 2023-04-24 06:04 | Day surgery (SDC) | payer MEDICAID, SELFPAY ==
[2023-04-23 08:13] VITALS: BMI 34.4
[2023-04-24] VITALS (10 sets, daily range): BP systolic 105–118; BP diastolic 67–85; PULSE 71–103; RESP 17–21; TEMP 36.1–37.1; O2SAT 93–99
--- NOTE | 2023-04-24 | XR_ITS ---
WS: [id number] Exam: XR foot RT 2V [id number] Date/Time of Exam: 04/24/2023 12:00 AM Reason For Exam: ressection of non unioon, orif Comparison 03/17/2023. There is plate and screw fixation of a healing fracture of the midshaft of the second metatarsal. No other fractures of the forefoot are identified.
[2023-04-24 06:22] LABS: OR HCG Qualitative Urine Negative (Negative)
--- NOTE | 2023-04-24 06:24 | W.PM.OPSUD ---
Surgery/Procedure H&P Update DATE OF PROCEDURE: April 24, 2023 DATE H&P PERFORMED: 03/31/23 CHANGES TO PREVIOUS DOCUMENTATION: None PREOP DIAGNOSIS: Right second metatarsal fracture PLANNED PROCEDURE: Operation Date: 04/24/23 07:00 Proposed Procedures p Resection of nonunion and open reduction internal fixation right second metatarsal 25299,?S92.324K(Right) - Mann Barnes DPM s ORIF Metatarsal(Right) - Mann Barnes DPM
--- NOTE | 2023-04-24 06:25 | ANES.PREANE2 ---
Pre-Anesthetic Assessment Height/Weight: Height 1.7 m Weight 99.79 kg Temp Pulse Resp BP Pulse Ox O2 Del Method 98.8 F 103 H 17 115/75 98 Room Air 04/24/23 06:22 04/24/23 06:22 04/24/23 06:22 04/24/23 06:22 04/24/23 06:22 04/24/23 06:22 Preop Diagnosis: Right second metatarsal fracture Operation Date: 04/24/23 07:00 Proposed Procedures p Resection of nonunion and open reduction internal fixation right second metatarsal 21294,?S92.324K(Right) - Mann Barnes DPM s ORIF Metatarsal(Right) - Mann Barnes DPM Familial anesthetic complications: none Was Beta Maryanne taken within 24 hours: N/A Was Clonidine taken within 24 hours: N/A Last intake: > 8hrs Social Tobacco and No alcohol Exam alert, oriented x 3, clear to auscultation bilaterally and regular rate & rhythm Airway Mallampati: Class I Dentition: full Pulmonary Sleep Apnea CV/HEM Arrythmia and Hypertension GI Gastroesophageal Reflux Disease Metabolic Thyroid Disease Anesthetic Plan ASA status: 2 Anesthesia: General Medications/Allergies Home Medications Medication Instructions Recorded Confirmed Last Taken Type fluticasone propionate 50 2 spray intranasal DAILY 05/28/22 04/24/23 04/23/23 History mcg/actuation nasal spray,suspension (Allergy Relief (fluticasone)) metoprolol tartrate 25 mg tablet 25 mg PO BID 08/12/22 04/23/23 Unknown History glucose monit #1 ea 09/17/22 04/20/23 Unknown Rx diltiazem HCl 240 mg capsule,24 240 mg PO DAILY #90 caps 10/24/22 04/23/23 04/24/23 Rx hr,extended release pen needle, diabetic 31 gauge x #50 ea 10/31/22 04/20/23 Unknown Rx 5/16 levothyroxine 75 mcg tablet 75 mcg PO DAILY #90 tabs 11/12/22 04/23/23 04/24/23 Rx hydroxychloroquine 200 mg tablet 200 mg PO BID #60 tabs 12/29/22 04/23/23 04/24/23 Rx triamcinolone acetonide 0.1 % See Rx Instructions .Route 01/29/23 04/23/23 Unknown Rx topical cream .COMPLEX #30 grams cholecalciferol (vitamin D3) 50 2,000 unit PO DAILY #30 tabs 02/17/23 04/23/23 04/23/23 Rx mcg (2,000 unit) tablet leflunomide 20 mg tablet 20 mg PO DAILY #30 tabs 02/17/23 04/23/23 04/23/23 Rx pregabalin 200 mg capsule (Lyrica) 200 mg PO BID #60 caps 02/17/23 04/23/23 04/24/23 Rx tofacitinib 5 mg tablet (Xeljanz) 5 mg PO BID #60 tabs 02/17/23 04/23/23 04/24/23 Rx Cam Boot #1 ea 03/03/23 04/20/23 Unknown Rx levalbuterol tartrate 45 2 inh inhalation Q6H PRN shortness 03/20/23 04/24/23 04/23/23 Rx mcg/actuation aerosol inhaler of breath or wheezing #15 grams (Xopenex HFA) fluoxetine 20 mg capsule (Prozac) 20 mg PO .morning #30 caps 04/20/23 04/23/23 04/24/23 Rx fluoxetine 40 mg capsule (Prozac) 40 mg PO QAM #30 caps 04/20/23 04/23/23 04/24/23 Rx topiramate 25 mg tablet (Topamax) 25 mg PO BEDTIME #30 tabs 04/20/23 04/23/23 04/23/23 Rx hydrocodone 10 mg-acetaminophen 1 tab PO Q8H PRN pain 7 days #21 04/24/23 Unknown Rx 325 mg tablet tabs Allergies Allergy/AdvReac Type Severity Reaction Status Date / Time No Known Allergies Allergy Verified 04/20/23 10:57 PFSH Anesthesia Medical History ASCUS with positive high risk HPV Asthma-COPD overlap syndrome Chronic GERD Chronic post-traumatic stress disorder Depersonalization and derealization Cubital tunnel syndrome on left s/p release Sx Family history of psoriasis in mother Fibromyalgia Generalized anxiety disorder Genital warts High risk medication use High risk medication use History of ADHD diagnosed as a child, history of taking Ritalin Hypertension Hypothyroid Immunization counseling Inflammatory arthritis Irritable bowel syndrome (IBS) prominently diarrhea Joint pain Low sexual desire disorder Major depressive disorder, recurrent episode, moderate with anxious distress Mitral valve prolapse Muscle pain Obsessive-compulsive disorder Orgasm disorder Psychiatric care Seronegative rheumatoid arthritis Seronegative rheumatoid arthritis of both hands Sexual dysfunction in females Smoker Subclinical hypothyroidism 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 Performed per Dr. 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
[2023-04-24] MEDS: sodium chloride 0.9% 1,000 ML 30 ML IV (06:45)
[2023-04-24] MEDS: midazolam 1 mg/mL INJ 2 mL 2 MG IVP (06:51)
[2023-04-24] MEDS: ceFAZolin 2,000 MG in sodium chloride 0.9% (plus) 50 ML 100 MG IV (06:55)
[2023-04-24 07:09] LABS: Anion Gap 15.7 (5-19); Blood Urea Nitrogen 15 mg/dL (6-20); Calcium 8.6 mg/dL (8.5-10.5); Carbon Dioxide 20 mmol/L (22-29); Chloride 105 mmol/L (98-107); Glomerular Filtration Rate 82.6 mL/min (90-130); Glucose 106 mg/dL (65-115); Osmolality Calculated 285 mOsm/kg (285-295); Potassium 3.7 mmol/L (3.5-5.1); Sodium 137 mmol/L (136-145)
--- NOTE | 2023-04-24 07:42 | P.OP_ITS ---
Operative Report Date of procedure: April 24, 2023 Pre-op diagnosis: Preop Diagnosis Right second metatarsal fracture Post-op diagnosis: Second metatarsal fracture Post-op findings: Right second metatarsal fracture Procedure done: Resection of nonunion and open reduction internal fixation right second metatarsal fracture. CPT code 75035 Implants: 3-0 Vicryl, 4-0 Vicryl, 4-0 nylon, [place] 4-hole 1.1 mm thickness straight plate, [place] 2.5 mm locking screw x3, nonlocking screw x1. 10 cc of Exparel. 20 cc of Marcaine. Specimens removed/disposition: None Pathology: None Surgeon: Mann Barnes D.P.M. Exercise Science Instructor: Echo Palomo Estimated blood loss: 2ml 21 IV fluids: 0 Urine output: 0 Complications: None Findings: Fracture right second metatarsal Brief History: Pleasant 32-year-old female fell down a flight of stairs 10/20/2022 injuring her right foot.? She has a fracture nonunion of the right second metatarsal diaphysis that is symptomatic.? Affects her quality of everyday life.? Has pain with standing and walking at all times.? Had an MRI performed without contrast of the right foot that shows subacute fracture with marrow edema at the second metatarsal as well as stress reaction at the third metatarsal without fracture. Patient requesting surgical invention.? Given MRI findings, clinical findings and subjective pain on a daily basis this would be a reasonable neck step.? I reviewed at length with the patient, the risks, potential complications, benefits, alternatives, expectations, and typical outcomes associated with the surgery. The risks and potential complications were explained in detail, including but not limited to infection, wound dehiscence or soft tissue complications, bleeding and hematoma, chronic edema, neuritis or nerve damage producing numbness or chronic pain, CRPS, failure to relieve pain or worsening pain, thick / painful / unsightly scar, limited motion / stiffness, malposition, delayed union, malunion, or nonunion, fracture, reaction to implants, anesthetic complications, venous thromboembolism, and deformity recurrence.? I discussed the notion of no regrets with the patient as it pertains to complications and outcomes. The patient seemed to understand the nature of the proposed care and required convalescence. They asked appropriate questions, answered to their satisfaction. They are aware no guarantees can be made as to a satisfactory outcome and they understand there may be other possible unforeseen complications or outcomes not listed here that will be treated accordingly if they arise. There were no written or implied guarantees given to the patient. They gave informed consent to proceed. Procedure: Under mild sedation the patient was brought to the operating room and placed onto the operating table in supine position. A timeout was performed. Anesthesia was then administered by the anesthesia service. Local anesthesia was then injected by myself consisting of 20 cc of 0.5% Marcaine plain in a right second ray block fashion to the right foot followed by 10 cc of Exparel subcutaneously at the dorsal right foot in a grid like fashion. A well-padded pneumatic tourniquet was applied to the right ankle. The right lower extremity was scrubbed, prepped and draped utilizing normal aseptic technique. The right foot was exanguinated with an Esmarch bandage and the tourniquet was inflated to 250 mmHg. Attention was directed to the dorsal aspect of the right foot where second metatarsal head was palpated dorsally, #15 blade utilized to perform a skin incision in a linear longitudinal fashion directly over the right second me tatarsal through skin with dissection carried down through subcutaneous tissue to the layer of periosteum utilizing blunt and sharp dissection. Care was taken to retract and preserve neurovascular and tendinous structures. All bleeders were ligated and cauterized as necessary. Fracture hematoma was evacuated and second metatarsal was fixated utilizing standard AO technique with a dorsal 4- hole locking plate provided by Mina Khan. Combination of locking and nonlocking screws with excellent bony apposition and compression noted. Intraoperative fluoroscopy in the AP, oblique and lateral views confirmed excellent placement of orthopedic hardware. The incision was irrigated with copious amounts of Staticin solution and closed in a layered fashion. Periosteum was reapproximated utilizing 3-0 Vicryl. Subcutaneous tissue with 4- 0 Vicryl and skin with 4-0 nylon. The incision was then dressed with Adaptic, sterile 4 x 4's, Kerlix and Cristopher wrap. Tourniquet was deflated and a prompt hype remic response was noted to the distal digits of the right foot. Patient tolerated the procedure and anesthesia well was transferred to the PACU with vital signs stable and vascular status intact. Cam boot was applied to the right lower extremity. She was advised to remain nonweightbearing and elevate and rest her right foot. Hydrocodone 10/325 mg sent to pharmacy of choice electronically this is [facility]. Will also provide a antinausea medication promethazine. Patient was given at home care instructions and scheduled follow-up as well as my cell phone number to contact with any postoperative questions or concerns. I advised a 81 mg aspirin to be taken starting the morning after surgery until she is weightbearing again. Baby aspirin may help potentially due to the risk of deep vein thrombosis. She was advised on symptoms and signs of DVT and was advised to report to the emergency department should she experience these symptoms.
--- NOTE | 2023-04-24 07:46 | PC.NURSE ---
Pt arrived to PACU, resting comfortably, dressing and boot to right foot C/D/I, right toes p/w/d, cap refill < 3 seconds, able to wiggle toes. FOB elevated.
--- NOTE | 2023-04-24 08:07 | PC.NURSE ---
Pt c/o nauseaBrigid DATABASE SECURITY ADMINISTRATOR at bedside and administered 6.25mg of Phenergan-see anesthesia record. Will monitor pt for effectiveness.
[2023-04-24] MEDS: scopolamine 1.5 Patch 1 PATCH TRANSDERMA (08:10)
--- NOTE | 2023-04-24 08:12 | PC.NURSE ---
pt continuing to c/o nausea, scopolamine patch placed per anesthesia instruction, will continue to monitor for effectiveness.
--- NOTE | 2023-04-24 14:20 | ANE.PACU2 ---
Inpatient post-anesthesia follow up: Airway intact: Yes Vital signs: Temperature 97.3 F Pulse Rate 71 Respiratory Rate 17 Blood Pressure 105/70 Pulse Oximetry 97 Oxygen Delivery Me thod Room Air Oxygen Flow Rate Fraction of Inspir ed Oxygen Hydration adequate: Yes Nausea and vomiting: No Pain level: 1 Mental status: Baseline
== END 2023-04-24 09:04 | disposition home or self-care (01) ==
PROVIDERS: Anesthesiology; PCP Nurse Practitioner Family; Visit Provider Podiatrist Foot & Ankle Surgery
PROC: (CPT 28140; principal; 2023-04-24 07:00)
PROC: (CPT 28485; 2023-04-24 07:00)
DX: S92.321A Displaced fracture of second metatarsal bone, right foot, initial encounter for closed fracture; W10.9XXA Fall (on) (from) unspecified stairs and steps, initial encounter; I10 Essential (primary) hypertension; K21.9 Gastro-esophageal reflux disease without esophagitis; E03.9 Hypothyroidism, unspecified; Z79.891 Long term (current) use of opiate analgesic; F41.1 Generalized anxiety disorder
CPT/HCPCS: 28485; 36415; 73620; 76000; 80048; 81025; 84703; C1713; C9290; J0690; J1100; J1200; J2250; J2405; J2550; J2704; J2710; J3010; J3490; J7030

== ENCOUNTER → 2023-05-07 09:33 | Outpatient (BNVA) | payer MEDICAID, SELFPAY | PROVIDERS: PCP Nurse Practitioner Family; Visit Provider Podiatrist Foot & Ankle Surgery | DX: Z98.890 Other specified postprocedural states (principal); S92.321A Displaced fracture of second metatarsal bone, right foot, initial encounter for closed fracture; W10.8XXA Fall (on) (from) other stairs and steps, initial encounter | CPT/HCPCS: 73630 ==

== ENCOUNTER 2023-05-19 11:11 | Outpatient (CLI) | payer MEDICAID, SELFPAY ==
--- NOTE | 2023-05-19 11:22 | XR_ITS ---
WS: [email or web address] EXAMINATION: XR foot RT min 3V* [id number] REASON FOR EXAM: post op COMPARISON: 05/07/2023 ORDER DATE: 05/19/2023 11:26 AM TECHNIQUE: 3 views of the right foot were obtained. X-RAY FINDINGS: Plate and screw fixation of previous presumed stress fracture progressing to complete fracture of the mid second metatarsal. The surgical appliances are intact and in proper position and alignment and unchanged compared to pre vious XR/XR foot RT min 3V* [id number] IMPRESSION: Stable postoperative right foot.
== END 2023-05-19 11:12 | disposition home or self-care (01) ==
LOC: RAD 11:13
PROVIDERS: PCP Nurse Practitioner Family
DX: S92.321D Displaced fracture of second metatarsal bone, right foot, subsequent encounter for fracture with routine healing (principal); X58.XXXD Exposure to other specified factors, subsequent encounter
CPT/HCPCS: 73630

== ENCOUNTER → 2023-06-04 09:13 | Outpatient (BNVA) | payer MEDICAID, SELFPAY | PROVIDERS: PCP Nurse Practitioner Family; Visit Provider Orthopaedic Surgery | DX: M41.9 Scoliosis, unspecified (principal); M54.9 Dorsalgia, unspecified; G89.29 Other chronic pain; S92.321A Displaced fracture of second metatarsal bone, right foot, initial encounter for closed fracture; X58.XXXA Exposure to other specified factors, initial encounter; G57.61 Lesion of plantar nerve, right lower limb | CPT/HCPCS: 72050; 72070; 72110; 73630 ==

== ENCOUNTER 2023-06-04 13:48 | Outpatient (CLI) | payer MEDICAID, SELFPAY | END 2023-06-04 13:49 | disposition home or self-care (01) | LOC: SPT 13:49 | PROVIDERS: PCP Nurse Practitioner Family; Visit Provider Podiatrist Foot & Ankle Surgery | DX: Z46.89 Encounter for fitting and adjustment of other specified devices (principal); S92.321D Displaced fracture of second metatarsal bone, right foot, subsequent encounter for fracture with routine healing; X58.XXXD Exposure to other specified factors, subsequent encounter | CPT/HCPCS: 97760; L1902 ==

== ENCOUNTER 2023-08-19 15:58 | Outpatient (CLI) | payer MEDICAID, SELFPAY ==
[2023-08-19 16:23] LABS: Basophils # 0.1 10^3/uL (0.0-0.1); Eosinophils # 0.2 10^3/uL (0.0-0.8); Eosinophils % 3.2 %; Hematocrit 41.2 % (36-47); Lymphocytes # 1.7 10^3/uL (0.8-4.8); Mean Corpuscular Hemoglobin 27.8 pg (27-33); Mean Corpuscular Volume 84.1 fl (85-98); Mean Platelet Volume 11.5 fL (7.4-10.4); Monocytes # 0.7 10^3/uL (0.2-0.9); Monocytes % 11.8 %; Neutrophils # 3.35 10^3/uL (1.8-7.7); Neutrophils % 55.5 %; Nucleated Red Blood Cells % 0 %; Platelet Count 202 10^3/cmm (157-399); Red Cell Distribution Width 13.9 % (12.1-15.1); White Blood Count 6.03 10^3/uL (3.29-11.43)
[2023-08-19 16:29] LABS: Erythrocyte Sedimentation Rate 8 mm/hr (0-15)
[2023-08-19 16:52] LABS: Cortisol Random 5.38 ug/dL (2.47-19.5)
[2023-08-19 17:17] LABS: Alanine Aminotransferase 24 U/L (0-33); Albumin Level 4.3 g/dL (3.5-5.2); Alkaline Phosphatase 117 U/L (35-105); Aspartate Amino Transferase 18 U/L (0-32); C Reactive Protein 15.3 mg/L (0.0-4.9); Chol HDL Ratio 4.04 mg/dL (0.0-4.40); Cholesterol 214 mg/dL (0-200); Globulin 2.4 g/dL (1.3-4.6); Glomerular Filtration Rate 63.5 mL/min (90-130); HDL Cholesterol 53 mg/dL (60-100); LDL Cholesterol Calculated 140 mg/dL (50-129); LDL HDL Ratio 2.64 RATIO (0.00-3.22); Thyroid Stimulating Hormone 0.59 uIU/mL (0.27-4.20); Total Bilirubin 0.3 mg/dL (0.15-1.2); Total Protein 6.7 g/dL (6.6-8.7); Triglycerides 106 mg/dL (0-150)
[2023-08-19 20:24] LABS: Free T4 Free Thyroxine 1.11 ng/dL (0.82-1.77)
[2023-08-21 09:49] LABS: T3 Total 108 ng/dL (76-181)
[2023-08-26 15:29] LABS: IGF1 LC/MS 87 ng/mL (53-331); Z Score (Female) -1.1 SD (-2.0 - +2.0)
[2023-08-28 23:29] LABS: TSH Receptor Binding Antibody <1.00 IU/L (< OR = 2.00)
== END 2023-08-19 15:59 | disposition home or self-care (01) ==
PROVIDERS: Internal Medicine Rheumatology; PCP Nurse Practitioner Family; Visit Provider Internal Medicine
DX: M06.041 Rheumatoid arthritis without rheumatoid factor, right hand (principal); M06.042 Rheumatoid arthritis without rheumatoid factor, left hand; Z79.899 Other long term (current) drug therapy; E07.9 Disorder of thyroid, unspecified; E23.7 Disorder of pituitary gland, unspecified; G47.33 Obstructive sleep apnea (adult) (pediatric); H53.60 Unspecified night blindness; R53.83 Other fatigue
CPT/HCPCS: 36415; 80061; 80076; 82533; 82565; 83516; 84305; 84439; 84443; 84480; 85025; 85651; 86140

== ENCOUNTER → 2023-08-25 13:03 | Outpatient (BNVA) | payer MEDICAID, SELFPAY | PROVIDERS: PCP Nurse Practitioner Family; Visit Provider Podiatrist Foot & Ankle Surgery | DX: Z98.890 Other specified postprocedural states (principal); M77.41 Metatarsalgia, right foot | CPT/HCPCS: 73630 ==

== ENCOUNTER 2023-08-27 06:54 | Outpatient (CLI) | payer MEDICAID, SELFPAY ==
--- NOTE | 2023-08-27 07:15 | MR_ITS ---
WS: [id number] MRI LUMBAR SPINE NONCONTRAST HISTORY: M54.16 - Radiculopathy, lumbar region COMPARISON: 05/18/2018 TECHNIQUE: Sagittal and axial multisequence imaging is submitted. Moderate increase in the thoracic kyphosis. Posterior fusion hardware is noted throughout a large por tion of the thoracic spine. There is mild distortion of the thoracic cord at the T1-2 level. This may be an artifact or adhesions. Very slight increase in the lumbar lordosis. Disc spaces and vertebral body heights are well-preserved. Conus terminates normally at L1-2 disc level. L1-L2: Widely patent central canal. Bone fusion along the posterior thecal sac. L2-L3: Osseous fusion posteriorly. No stenosis. L3-L4: Mild facet and ligamentum flavum hypertrophy. No stenosis. L4-L5: Mild disc bulging with ligamentum flavum and facet arthritis. Slightly lobulated cyst measurin g 8 mm associated with the LEFT facet joint is probably a small facet joint cyst. No stenosis. L5-S1: No stenosis Sacral cyst at the S2 level. IMPRESSION: 1. No high-grade central or foraminal stenosis and no disc protrusions. 2. Intact osseous fusion extending posteriorly at L1-2 and L2-3. 3. No fractures
== END 2023-08-27 06:55 | disposition home or self-care (01) ==
LOC: RAD 06:54
PROVIDERS: PCP Nurse Practitioner Family; Visit Provider Orthopaedic Surgery
DX: M54.16 Radiculopathy, lumbar region (principal); Z98.1 Arthrodesis status
CPT/HCPCS: 72148

== ENCOUNTER 2023-09-04 07:25 | Outpatient (CLI) | payer MEDICAID, SELFPAY ==
--- NOTE | 2023-09-04 07:45 | US_ITS ---
WS: [id number] ULTRASOUND SOFT TISSUES RIGHT foot HISTORY: rule out Shelby's Neuroma COMPARISON: None available. TECHNIQUE: 2-D and color Doppler imaging is submitted. Ultrasound is performed through the intermetatarsal spaces. No definite neuroma is identified. There are a few areas of low echogenicity but cannot confirm these are neuromas. There is no fluid collecti on or bursitis. IMPRESSION: Cannot confirm Shelby neuroma.
== END 2023-09-04 07:26 | disposition home or self-care (01) ==
LOC: RAD 07:25
PROVIDERS: PCP Nurse Practitioner Family; Visit Provider Podiatrist Foot & Ankle Surgery
DX: Z98.890 Other specified postprocedural states (principal)
CPT/HCPCS: 76882

== ENCOUNTER 2023-09-07 08:30 | Oncology outpatient (recurring) (ONCR) | payer MEDICAID, SELFPAY ==
[2023-08-26] VITALS (8 sets, daily range): BP systolic 96–116; BP diastolic 63–77; PULSE 64–82; RESP 16; TEMP 35.4–35.9; O2SAT 94–99
[2023-08-26] MEDS: sodium chloride 0.9% 250 ML 75 ML IV (08:41)
[2023-08-26] MEDS: acetaminophen 325 mg Tablet 650 MG PO (08:43)
[2023-08-26] MEDS: diphenhydrAMINE 50 mg/mL SDV 1mL 25 MG IVP (08:44)
[2023-08-26] MEDS: methylPREDNISolone sod succ 40 mg SDV IVP (08:48)
[2023-09-07] VITALS (7 sets, daily range): BP systolic 94–121; BP diastolic 66–77; PULSE 67–82; RESP 16; TEMP 35.9–36.2; O2SAT 97–98
[2023-09-07] MEDS: sodium chloride 0.9% 250 ML 75 ML IV (09:17)
[2023-09-07] MEDS: diphenhydrAMINE 50 mg/mL SDV 1mL 25 MG IVP (09:20)
[2023-09-07] MEDS: methylPREDNISolone sod succ 40 mg SDV IVP (09:24)
[2023-09-07] MEDS: acetaminophen 325 mg Tablet 650 MG PO (09:29)
[2023-09-07] MEDS: infliximab-abda 500 MG in sodium chloride 0.9% 250 ML 10 MG IV (10:00)
== END 2023-09-24 23:59 | disposition home or self-care (01) ==
PROVIDERS: PCP Nurse Practitioner Family; Visit Provider Internal Medicine Rheumatology
DX: M05.842 Other rheumatoid arthritis with rheumatoid factor of left hand; M05.841 Other rheumatoid arthritis with rheumatoid factor of right hand
CPT/HCPCS: 96375; 96413; 96415; J1200; J2920; J7050; Q5104

== ENCOUNTER 2023-09-08 07:44 | Outpatient (CLI) | payer MEDICAID, SELFPAY ==
--- NOTE | 2023-09-08 07:50 | XR_ITS ---
WS: [id number] Exam: XR hip LT 2-3V wo/w pel* [id number] Date/Time of Exam: 09/08/2023 7:55 AM Reason For Exam: M25.552 - Pain in left hip Comparison 03/18/2021. No acute fracture or dislocation. The joint compartment is relatively well-maintained. Normal soft ti ssues. IMPRESSION: 1. Normal LEFT hip.
== END 2023-09-08 07:45 | disposition home or self-care (01) ==
LOC: RAD 07:46
PROVIDERS: PCP Nurse Practitioner Family; Visit Provider Nurse Practitioner Family
DX: M25.552 Pain in left hip (principal)
CPT/HCPCS: 73502

== ENCOUNTER 2023-09-11 14:19 | Outpatient (CLI) | payer MEDICAID, SELFPAY ==
[2023-09-11 15:56] LABS: Creatine Phosphokinase 45 U/L (26-192)
[2023-09-11 16:10] LABS: Vitamin B12 410 pg/mL (232-1245)
[2023-09-11 16:15] LABS: Folate Level 8.8 ng/mL (4.8-37.3)
[2023-09-14 14:16] LABS: PROTEIN, TOTAL 6.4 g/dL (6.1-8.1)
[2023-09-14 15:06] LABS: RPR w(Moniotor) w/REFL Titer NON-REACTIVE (NON-REACTIVE)
[2023-09-14 15:28] LABS: Aldolase 4.6 U/L (< OR = 8.1)
[2023-09-14 17:25] LABS: Lymes IGG WB <0.90 index
[2023-09-15 11:04] LABS: Treponema pallidum Ab NON-REACTIVE (NON-REACTIVE)
[2023-09-16 08:09] LABS: ALBUMIN 4.1 g/dL (3.8-4.8); ALPHA 1 GLOBULIN 0.2 g/dL (0.2-0.3); ALPHA 2 GLOBULIN 0.6 g/dL (0.5-0.9); BETA 1 GLOBULIN 0.4 g/dL (0.4-0.6); BETA 2 GLOBULIN 0.3 g/dL (0.2-0.5); GAMMA GLOBULIN 0.7 g/dL (0.8-1.7)
[2023-09-16 20:50] LABS: Copper Level 115 mcg/dL (70-175)
== END 2023-09-11 14:20 | disposition home or self-care (01) ==
PROVIDERS: PCP Nurse Practitioner Family; Visit Provider Psychiatry & Neurology Neurology
DX: M25.552 Pain in left hip (principal); E66.9 Obesity, unspecified; G89.29 Other chronic pain; I10 Essential (primary) hypertension; M77.41 Metatarsalgia, right foot; R51.9 Headache, unspecified
CPT/HCPCS: 36415; 82085; 82525; 82550; 82607; 82746; 83735; 84155; 84165; 86334; 86592; 86617; 86780

== ENCOUNTER 2023-10-07 12:36 | Oncology outpatient (recurring) (ONCR) | payer MEDICAID, SELFPAY ==
[2023-10-07] VITALS (7 sets, daily range): BP systolic 92–107; BP diastolic 62–73; PULSE 81–94; RESP 16; TEMP 36.1–36.3; O2SAT 96–99
[2023-10-07] MEDS: acetaminophen 325 mg Tablet 650 MG PO (13:39)
[2023-10-07] MEDS: sodium chloride 0.9% 250 ML 75 ML IV (13:41)
[2023-10-07] MEDS: diphenhydrAMINE 50 mg/mL SDV 1mL 25 MG IVP (13:42)
[2023-10-07] MEDS: methylPREDNISolone sod succ 40 mg/mL INJ IVP (13:54)
[2023-10-07] MEDS: infliximab-abda 500 MG in sodium chloride 0.9% 250 ML 10 MG IV (14:15)
== END 2023-10-25 23:59 | disposition home or self-care (01) ==
PROVIDERS: PCP Nurse Practitioner Family; Visit Provider Internal Medicine Rheumatology
DX: M05.842 Other rheumatoid arthritis with rheumatoid factor of left hand (principal); M05.841 Other rheumatoid arthritis with rheumatoid factor of right hand
CPT/HCPCS: 96365; 96366; 96375; J1200; J2920; J7050; Q5104

== ENCOUNTER → 2023-11-04 11:11 | Outpatient (BNVA) | payer MEDICAID, SELFPAY | PROVIDERS: PCP Nurse Practitioner Family; Visit Provider Nurse Practitioner Family | DX: J06.9 Acute upper respiratory infection, unspecified (principal); R05.9 Cough, unspecified | CPT/HCPCS: 87400 ==

== ENCOUNTER → 2023-11-11 11:40 | Outpatient (BNVA) | payer MEDICAID, SELFPAY | PROVIDERS: PCP Nurse Practitioner Family; Visit Provider Internal Medicine | DX: R53.83 Other fatigue (principal); E23.7 Disorder of pituitary gland, unspecified; E07.9 Disorder of thyroid, unspecified; H53.60 Unspecified night blindness; G47.33 Obstructive sleep apnea (adult) (pediatric) | CPT/HCPCS: 84439; 84443; 84480 ==

== ENCOUNTER 2023-12-02 08:34 | Outpatient (CLI) | payer MEDICAID, SELFPAY ==
--- NOTE | 2023-12-02 14:30 | MR_ITS ---
WS: [id number] MRA ANGIOGRAPHY [place] HISTORY: R51.9 - Headache, unspecified COMPARISON: None available. TECHNIQUE: 3-D MR angiography is performed of the [place] of [place]. All images are reviewed including source images. Distal vertebral and basilar arteries are intact with no significant stenosis or plaque. Posterior ce rebral arteries are normal course and caliber. Posterior communicating arteries are both patent. Intracranial portion of the internal carotid arteries are normal course and caliber. No significant a therosclerosis, stenosis or aneurysm identified. Middle and anterior cerebral arteries are both paten t with no significant disease. Anterior communicating artery is also normal. IMPRESSION: Normal MRA [place] of [place].
== END 2023-12-02 08:35 | disposition home or self-care (01) ==
LOC: RT 08:36
PROVIDERS: PCP Nurse Practitioner Family; Visit Provider Psychiatry & Neurology Neurology
DX: R51.9 Headache, unspecified (principal); R55 Syncope and collapse; R06.00 Dyspnea, unspecified; J98.4 Other disorders of lung
CPT/HCPCS: 70544

== ENCOUNTER 2023-12-02 08:35 | Outpatient (CLI) | payer MEDICAID, SELFPAY ==
[2023-12-02 09:27] VITALS: PULSE 106; RESP 18; O2SAT 98
[2023-12-02] MEDS: albuterol 2.5 mg/3 mL Neb INHALATION (09:27)
[2023-12-02 09:32] VITALS: PULSE 102
== END 2023-12-02 08:36 | disposition home or self-care (01) ==
LOC: RT 08:36
PROVIDERS: PCP Nurse Practitioner Family; Visit Provider Internal Medicine Pulmonary Disease
DX: R06.00 Dyspnea, unspecified (principal); J98.4 Other disorders of lung
CPT/HCPCS: 94060; 94618; 94726; 94729; J7613

== ENCOUNTER 2023-12-02 09:51 | Outpatient (CLI) | payer MEDICAID, SELFPAY ==
[2023-12-02 10:52] LABS: Basophils % 0.6 %; Eosinophils # 0.1 10^3/uL (0.0-0.8); Hematocrit 45.1 % (36-47); Lymphocytes # 2.1 10^3/uL (0.8-4.8); Mean Corpuscular HGB Conc 31.9 g/dL (30-55); Mean Corpuscular Hemoglobin 27.7 pg (27-33); Mean Corpuscular Volume 86.7 fl (85-98); Mean Platelet Volume 11.7 fL (7.4-10.4); Monocytes # 0.6 10^3/uL (0.2-0.9); Monocytes % 9.6 %; Neutrophils # 3.64 10^3/uL (1.8-7.7); Neutrophils % 55.5 %; Nucleated Red Blood Cells % 0 %; Platelet Count 187 10^3/cmm (157-399); Red Cell Distribution Width 14.1 % (12.1-15.1); White Blood Count 6.56 10^3/uL (3.29-11.43)
[2023-12-02 11:15] LABS: Alanine Aminotransferase 18 U/L (0-33); Albumin Level 4.2 g/dL (3.5-5.2); Alkaline Phosphatase 122 U/L (35-105); Aspartate Amino Transferase 16 U/L (0-32); C Reactive Protein 13.3 mg/L (0.0-4.9); Globulin 3.3 g/dL (1.3-4.6); Glomerular Filtration Rate 63.5 mL/min (90-130); Total Bilirubin 0.3 mg/dL (0.15-1.2); Total Protein 7.5 g/dL (6.6-8.7)
== END 2023-12-02 09:52 | disposition home or self-care (01) ==
LOC: LAB 09:52
PROVIDERS: PCP Nurse Practitioner Family; Visit Provider Internal Medicine Rheumatology
DX: Z79.899 Other long term (current) drug therapy (principal)
CPT/HCPCS: 36415; 80076; 82565; 85025; 86140

== ENCOUNTER 2023-12-03 08:02 | Oncology outpatient (recurring) (ONCR) | payer MEDICAID, SELFPAY ==
[2023-12-03] VITALS (7 sets, daily range): BP systolic 97–109; BP diastolic 62–71; PULSE 71–79; RESP 16; TEMP 35.9–36.3; O2SAT 95–97
[2023-12-03] MEDS: acetaminophen 325 mg Tablet 650 MG PO (09:03)
[2023-12-03] MEDS: diphenhydrAMINE 50 mg/mL SDV 1mL 25 MG IVP (09:03)
[2023-12-03] MEDS: sodium chloride 0.9% 250 ML 75 ML IV (09:03)
[2023-12-03] MEDS: methylPREDNISolone sod succ 40 mg/mL INJ IVP (09:04)
[2023-12-03] MEDS: infliximab-abda 500 MG in sodium chloride 0.9% 250 ML 10 MG IV (09:30)
== END 2023-12-24 23:59 | disposition home or self-care (01) ==
LOC: ONCMED 08:03
PROVIDERS: PCP Nurse Practitioner Family; Visit Provider Internal Medicine Rheumatology
DX: M05.842 Other rheumatoid arthritis with rheumatoid factor of left hand (principal); M05.841 Other rheumatoid arthritis with rheumatoid factor of right hand
CPT/HCPCS: 96375; 96413; 96415; A4222; J1200; J2920; J7050; Q5104

== ENCOUNTER 2023-12-25 06:10 | Day surgery (SDC) | payer MEDICAID, SELFPAY ==
[2023-12-25] VITALS (7 sets, daily range): BP systolic 89–137; BP diastolic 61–81; PULSE 67–95; RESP 16–18; TEMP 36.1–36.6; O2SAT 94–97; BMI 34.0
[2023-12-25 07:00] LABS: OR HCG Qualitative Urine Negative (Negative)
[2023-12-25] MEDS: sodium chloride 0.9% 1,000 ML 30 ML IV (07:01)
[2023-12-25] MEDS: gabapentin 300 mg Capsule PO (07:01)
[2023-12-25] MEDS: CELEcoxib 200 mg Capsule 400 MG PO (07:02)
[2023-12-25] MEDS: scopolamine 1.5 Patch 1 PATCH TRANSDERMA (07:02)
--- NOTE | 2023-12-25 07:05 | P.ANESASSM_ITS ---
Pre-Anesthetic Assessment Height/Weight: Height 1.7 m Weight 98.43 kg Temp Pulse Resp BP Pulse Ox O2 Del Method 97.2 F L 92 18 109/78 97 Room Air 12/25/23 06:47 12/25/23 06:47 12/25/23 06:47 12/25/23 06:47 12/25/23 06:47 12/25/23 06:47 Preop Diagnosis: Painful hardware, plantar plate tear, Shelby's neuroma all right foot Operation Date: 12/25/23 07:50 Proposed Procedures p Tendon Repair Foot Flexor Tendon Repair(Right) - Mann Barnes DPM s Hardware Removal(Right) - ERIN Collins Open Decompression Intermetarsal /Shelby's neuroma decompression right second intermetatarsal space.(Right) - Mann Barnes DPM Familial anesthetic complications: none Was Beta Maryanne taken within 24 hours: N/A Was Clonidine taken within 24 hours: N/A Last intake: Intake Last Liquid Date 12/24/23 Last Liquid Time 18:00 Last Solid Date 12/24/23 Last Solid Time 18:00 Social Tobacco and No alcohol Exam alert, oriented x 3, clear to auscultation bilaterally and regular rate & rhythm Airway Mallampati: Class I Dentition: full Pulmonary Sleep Apnea CV/HEM Arrythmia and Hypertension Angel-Danlos GI Gastroesophageal Reflux Disease Well-controlled Metabolic Thyroid Disease Anesthetic Plan ASA status: 2 Anesthesia: MAC Risk of > 500 ml blood loss (7ml/kg in children): No Medications/Allergies Home Medications Medication Instructions Recorded Confirmed Last Taken Type midodrine 5 mg tablet 5 mg PO TID 06/04/23 12/25/23 12/25/23 History topiramate 25 mg tablet (Topamax) 25 mg PO BEDTIME 06/11/23 12/25/23 12/25/23 History Cam boot to right #1 ea 10/20/23 12/25/23 12/25/23 Rx levalbuterol tartrate 45 2 inh inhalation Q6H PRN shortness 11/12/23 12/25/23 12/25/23 Rx mcg/actuation aerosol inhaler of breath or wheezing #15 grams (Xopenex HFA) levothyroxine 50 mcg tablet 50 mcg PO DAILY #90 tabs 11/24/23 12/25/23 12/25/23 Rx budesonide-formoterol HFA 160 2 puff inhalation BID #10.2 grams 11/30/23 12/25/23 12/25/23 Rx mcg-4.5 mcg/actuation aerosol inhaler (Symbicort) tiotropium bromide 18 mcg capsule 1 cap inhalation DAILY #30 11/30/23 12/25/23 12/25/23 Rx with inhalation device (Spiriva inhalations with HandiHaler) celecoxib 200 mg capsule See Rx Instructions .Route 12/03/23 12/25/23 12/24/23 Rx .COMPLEX #60 ea pregabalin 200 mg capsule (Lyrica) 200 mg PO BID #60 caps 12/03/23 12/25/23 12/25/23 Rx Wheel Chair with elevated leg rest #1 ea 12/04/23 12/25/23 12/25/23 Rx vortioxetine [Trintellix] 20 mg PO QAM 12/15/23 12/25/23 12/25/23 History cholecalciferol (vitamin D3) 50 2,000 unit PO DAILY #30 tabs 12/16/23 12/25/23 12/24/23 10:47 Rx mcg (2,000 unit) tablet diltiazem HCl 240 mg capsule,24 60 mg PO TID 12/24/23 12/25/23 12/25/23 History hr,extended release famotidine 40 mg tablet 410 mg PO BID 12/24/23 12/25/23 12/25/23 History modafinil 200 mg tablet 200 mg PO DAILY 12/24/23 12/25/23 12/25/23 History pantoprazole 40 mg tablet,delayed 40 mg PO DAILY 12/24/23 12/25/23 12/25/23 History release Allergies Allergy/AdvReac Type Severity Reaction Status Date / Time No Known Allergies Allergy Verified 12/25/23 06:43 Current Medications Generic Name Dose Route Start Last Admin Trade Name Freq PRN Reason Stop Dose Admin Sodium Chloride 1,000 mls @ 30 mls/hr 12/25/23 06:30 12/25/23 07:01 Sodium Chloride 0.9% IV 12/26/23 06:29 30 mls/hr .Q24H ANDREINA Administration PFSH Anesthesia Medical History 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, hyperextensible joints Irritable bowel syndrome (IBS) prominently diarrhea Chronic GERD Hypothyroid High risk medication use Hypertension Cubital tunnel syndrome on left s/p release Sx Vitamin D deficiency Ulnar neuropathy at elbow Subclinical hypothyroidism Asthma-COPD overlap syndrome Mitral valve prolapse Smoker Seronegative rheumatoid arthritis Seronegative rheumatoid arthritis of both hands Psychiatric care Joint pain Muscle pain High risk medication use TMJ arthritis Immunization counseling Fibromyalgia Family history of psoriasis in mother Inflammatory arthritis History of ADHD diagnosed as a child, history of taking Ritalin Obsessive-compulsive disorder Chronic post-traumatic stress disorder 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 Performed per Dr. Mayers at [place], [place] Previous back surgery x2 MOBLEY RODS - HARDWARE REMOVED IN 2007 S/P tonsillectomy S/P hernia repair 2010, umbilical Family History Mother Cervical cancer dx at unknown age Thyroid disease Hypertension Heart disease Lewy body dementia Grandmother Ovarian cancer maternal Father Stroke Denies family history of Colon cancer Hyperlipidemia Breast cancer Social History Smoking and tobacco/nicotine status: former use of tobacco/nicotine Quit status (tobacco/nicotine): has quit using Second hand smoke exposure: Yes Alcohol intake: current Alcohol intake frequency: holidays/special occasions only Substance/Drug Use: never Adopted: Yes Lives independently: Yes Housing: House Marital status: Data Anesthesia Cardiac Studies: Echocardiogram 07/11/22 Cardiac Event Monitor 01/13/23 Holter Monitor 04/02/22
--- NOTE | 2023-12-25 07:05 | W.PM.OPSUD ---
Surgery/Procedure H&P Update DATE OF PROCEDURE: December 25, 2023 DATE H&P PERFORMED: 12/02/23 H&P UPDATE INFORMATION: I have reviewed H&P completed within last 30 days, I have examined patient prior to procedure, No changes to prior documentation and H&P is in [facility] on date indicated CHANGES TO PREVIOUS DOCUMENTATION: none PREOP DIAGNOSIS: Painful hardware, plantar plate tear, Shelby's neuroma all right foot PLANNED PROCEDURE: Operation Date: 12/25/23 07:50 Proposed Procedures p Tendon Repair Foot Flexor Tendon Repair(Right) - Mann Barnes DPM s Hardware Removal(Right) - Mann Barnes DPM s Open Decompression Intermetarsal /Shelby's neuroma decompression right second intermetatarsal space.(Right) - Mann Barnes DPM
[2023-12-25] MEDS: ceFAZolin 2,000 MG in sodium chloride 0.9% (plus) 50 ML 100 MG IV (07:07)
[2023-12-25] MEDS: BUPivacaine liposome 13.3 mg/mL SDV 10 mL 266 MG INJECTION (07:35)
[2023-12-25] MEDS: BUPivacaine 0.5% INJ 30 mL INJECTION (07:35)
--- NOTE | 2023-12-25 08:20 | W.PM.BPON ---
Date of Procedure: 12/25/23 Surgeon: Mann Barnes DPM Recreation Teacher(s): Ulysses Procedure(s) performed: Deep hardware removal, second intermetatarsal Shelby's neuroma decompression and first metatarsophalangeal joint plantar plate repair all right foot Findings of the procedure(s): None Estimated blood loss: 2 mL Specimen(s) removed: No specimens Post-operative diagnosis: Right second Shelby's neuroma, painful hardware right foot, plantar plate tear right first metatarsal phalangeal joint No complications with anesthesia or surgery
--- NOTE | 2023-12-25 08:21 | P.OP_ITS ---
Operative Report Date of procedure: December 25, 2023 Pre-op diagnosis: Strain flexor tendon right foot S96.011A, Painful hardware right foot. 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 CPT code 86926 Deep hardware removal right foot. CPT code 51201 Shelby's neuroma decompression right second intermetatarsal space. CPT code 64 702 Implants: 3-0 Vicryl, 4-0 Vicryl, 4-0 nylon, 3-0 Prolene Specimens removed/disposition: None Pathology: None Surgeon: Mann Barnes DPM Global Sales Executive: Ulysses Estimated blood loss: 2 49 IV fluids: None Urine output: None Complications: none Brief History: Patient requesting surgical invention, has failed a extended period of time immobilized with cam boot, states that she has pain that affects her overall quality of life, difficult to stand and walk around the house. I reviewed at length with the patient, the risks, potential complications, benefits, alternatives, expectations, and typical outcomes associated with the surgery. The risks and potential complications were explained in detail, including but not limited to infection, wound dehiscence or soft tissue complications, bleeding and hematoma, chronic edema, neuritis or nerve damage producing numbness or chronic pain, CRPS, failure to relieve pain or worsening pain, thick / painful / unsightly scar, limited motion / stiffness, malposition, delayed union, malunion, or nonunion, fracture, reaction to implants, anesthetic complications, venous thromboembolism, and deformity recurrence. I discussed the notion of no regrets with the patient as it pertains to complications and outcomes. The patient seemed to understand the nature of the proposed care and required convalescence. They asked appropriate questions, answered to their satisfaction. They are aware no guarantees can be made as to a satisfactory outc ome and they understand there may be other possible unforeseen complications or outcomes not listed here that will be treated accordingly if they arise. There were no written or implied guarantees given to the patient. They gave informed consent to proceed. Hardware removal, plantar plate repair first metatarsal phalangeal joint, and decompression of Shelby's neuroma to second interspace ALL on right Procedure: Under mild sedation the patient was brought to the operating room and remained on the gurney in supine position. A timeout was performed. Anesthesia was then administered by the anesthesia service. Local anesthesia was injected by myself consisting of 30 cc of one-to-one mixture 1% lidocaine and 0.5 sent Marcaine plain and a right Braun block and second ray block fashion. Well-padded pneumatic tourniquet applied to the right ankle. The right lower extremity was scrubbed, prepped and draped utilizing normal aseptic technique. Right foot was exanguinated with Esmarch bandage and tourniquet inflated to 250 mmHg. Attention was directed to the right plantar forefoot where a planned incision was carried out at the plantar aspect of the right first metatarsal head between the fibular and tibial sesamoid. Incision was made through skin with a #15 blade with dissection carried down deeply through subcutaneous tissue and fat layer down to the layer of the plantar plate of the first metatarsal phalangeal joint with a convergence of the flexor tendon, sesamoidal apparatus including inner sesamoidal ligament and plantar capsule of the first metatarsal phalangeal joint, a capsular tear and tear of the flexor hallucis longus tendon was visualized. After saline irrigation this was directly repaired utilizing 3-0 Vicryl with robust repair appreciated intraoperatively. Normally of a communicating nerve was encountered within this incision coursing in a oblique fashion from proximal medial to distal lateral inferior to the first metatarsal head this was mobilized proximally and medially away from direct weightbearing pressure of the first metatarsal head. The incision was irrigated with copious amounts of sterile saline solution and closed with a single layer closure of 3-0 Prolene. Attention was then directed to the dorsal aspect of the right forefoot where a curvilinear incision was performed over the second metatarsal coursing distally in a curvilinear fashion within the second intermetatarsal space. Dissection was carried down to hardware of the second metatarsal which was removed in total a total of 4 screws and 1 plate without hardware failure appreciated, hardware was removed and passed from operative field in total. The incision was then irrigated with copious amounts of sterile skin solution. Attention was directed to the second metatarsal space where dissection was carried down to the deep transverse intermetatarsal ligament which was sharply incised, the plantar nerve within the second intermetatarsal space was directly visualized and freed from all adhesions and mobilized, nerve appeared less than 4 mm in diameter at the neuroma and after having mobilized all adhesions around the nerve and freeing up space I did not see any further impingement and thought it best to leave the nerve with expected recovery after decompression. The incision was irrigated with saline solution. Deep tissues reapproximated with 4-0 Vicryl and skin with 4-0 nylon. Both incisions plantarly and dorsally were dressed with Adaptic, sterile 4 x 4's, Kerlix, Cristopher wrap followed by cam boot. Tourniquet was deflated and a prompt hyperemic response was noted to the distal digits of the right foot. Patient tolerated the procedure and anesthesia well and was transferred to the PACU with vital signs stable and vascular status intact. Following a period of postoperative monitoring she will be discharged home, was given at home care instructions, scheduled follow-up and my cell phone number to contact me with any postoperative questions or concerns.
[2023-12-25] MEDS: HYDROcodone-acetaminophen 10-325 mg Tablet 1 TAB PO (09:21)
--- NOTE | 2023-12-25 17:55 | ANE.PACU2 ---
Inpatient post-anesthesia follow up: Airway intact: Yes Vital signs: Temperature 97.0 F Pulse Rate 67 Respiratory Rate 18 Blood Pressure 137/79 Pulse Oximetry 97 Oxygen Delivery Me thod Room Air Oxygen Flow Rate Fraction of Inspir ed Oxygen Hydration adequate: Yes Nausea and vomiting: No Pain level: 1 Mental status: Baseline
== END 2023-12-25 11:07 | disposition home or self-care (01) ==
PROVIDERS: Student in an Organized Health Care Education/Training Program; Visit Provider Podiatrist Foot & Ankle Surgery
PROC: (CPT 20680; principal; 2023-12-25 07:50)
PROC: (CPT 20680; 2023-12-25 07:50)
PROC: (CPT 20680; 2023-12-25 07:50)
DX: S96.011A Strain of muscle and tendon of long flexor muscle of toe at ankle and foot level, right foot, initial encounter (principal); Y82.8 Other medical devices associated with adverse incidents; T84.84XA Pain due to internal orthopedic prosthetic devices, implants and grafts, initial encounter; G47.61 Periodic limb movement disorder; G47.30 Sleep apnea, unspecified; I10 Essential (primary) hypertension; K21.9 Gastro-esophageal reflux disease without esophagitis; E03.9 Hypothyroidism, unspecified; M79.7 Fibromyalgia; Z87.891 Personal history of nicotine dependence
CPT/HCPCS: 20680; 28200; 64702; 81025; 84703; C9290; J0690; J1100; J2250; J2405; J2704; J3010; J3490; J7030

== ENCOUNTER 2024-01-14 08:11 | Oncology outpatient (recurring) (ONCR) | payer MEDICAID, SELFPAY ==
[2024-01-14] VITALS (8 sets, daily range): BP systolic 79–103; BP diastolic 43–73; PULSE 80–96; RESP 16; TEMP 35.7–36.8; O2SAT 95–98
[2024-01-14] MEDS: methylPREDNISolone sod succ 40 mg/mL INJ IVP (09:07)
[2024-01-14] MEDS: sodium chloride 0.9% 250 ML 75 ML IV (09:07)
[2024-01-14] MEDS: diphenhydrAMINE 50 mg/mL SDV 1mL 25 MG IVP (09:10)
[2024-01-14] MEDS: acetaminophen 325 mg Tablet 650 MG PO (09:11)
[2024-01-14] MEDS: infliximab-abda 1,000 MG in sodium chloride 0.9% 250 ML 10 MG IV (09:29)
[2024-01-14 09:32] LABS: Free T4 Free Thyroxine 1.13 ng/dL (0.82-1.77); Thyroid Stimulating Hormone 1.79 uIU/mL (0.27-4.20)
[2024-01-15 07:00] LABS: T3 Total 106 ng/dL (76-181)
== END 2024-01-24 23:59 | disposition home or self-care (01) ==
PROVIDERS: Internal Medicine; Visit Provider Internal Medicine Rheumatology
DX: M05.842 Other rheumatoid arthritis with rheumatoid factor of left hand (principal); M05.841 Other rheumatoid arthritis with rheumatoid factor of right hand; Z53.9 Procedure and treatment not carried out, unspecified reason
CPT/HCPCS: 84439; 84443; 84480; 96375; 96413; 96415; A4222; J1200; J2920; J7050; Q5104

== ENCOUNTER 2024-02-22 15:59 | Outpatient (CLI) | payer MEDICAID, SELFPAY ==
--- NOTE | 2024-02-22 16:15 | MR_ITS ---
WS: [id number] MR VENOGRAPHY HEAD 3-D noncontrast imaging performed through the cerebral veins. All imaging is reviewed. HISTORY: G08 - Intracranial and intraspinal phlebitis and thrombop... COMPARISON: None available. Good demonstration of the dural venous sinuses and cerebral veins. There are no filling defects to lord ggest acute or chronic thrombus. Smaller caliber LEFT transverse sinus which is a normal variant. Harshad w artifact in the jugular veins. Superior sagittal sinus, straight sinus and transverse sinuses are a ll patent with no significant thrombus. MR/[place] [id number] IMPRESSION: Normal MR venogram cerebral veins.
== END 2024-02-22 16:00 | disposition home or self-care (01) ==
LOC: RAD 16:00
PROVIDERS: Visit Provider Psychiatry & Neurology Neurology
DX: G08 Intracranial and intraspinal phlebitis and thrombophlebitis (principal)
CPT/HCPCS: 70544

== ENCOUNTER 2024-02-23 13:48 | Outpatient (CLI) | payer MEDICAID, SELFPAY ==
--- NOTE | 2024-02-23 14:00 | CTR_ITS ---
PROCEDURE INFORMATION: Exam: CT Chest Without Contrast; Diagnostic Exam date and time: 02/23/2024 1:58 PM Age: 33 years old Clinical indication: Screening exam; Other screening; Prior surgery; Surgery date: 6+ months; Surgery type: Loop recorder; Additional info: To rule out interstitial lung disease, hrct TECHNIQUE: Imaging protocol: Diagnostic computed tomography of the chest without contrast. Radiation optimization: All CT scans at this facility use at least one of these dose optimization techniques: automated exposure control; mA and/or kV adjustment per patient size (includes targeted exams where dose is matched to clinical indication); or iterative reconstruction. COMPARISON: CT chest con [id number] 07/11/2022 7:56 AM RADIATION DOSE METRICS: Total DLP (mGy-cm): 1463.62 FINDINGS: Lungs: No subpleural reticulation. No bronchiectasis. No bronchial wall thickening. Pleural spaces: Unremarkable. No pneumothorax. No pleural effusion. Heart: Unremarkable. No cardiomegaly. No pericardial effusion. Coronary arteries: No coronary artery calcification.. In the scarring in the lateral lung bases. Lymph nodes: Unremarkable. No enlarged lymph nodes. Vasculature: Unremarkable. No aortic aneurysm. Bones/joints: Pectus excavatum deformity. Scoliosis. Soft tissues: Unremarkable. CT/CT chest con [id number] IMPRESSION: 1. No CT findings suggestive of interstitial lung disease. 2. Pectus excavatum deformity. Scoliosis 3. Scarring/atelectasis in the lateral lung bases
== END 2024-02-23 13:49 | disposition home or self-care (01) ==
LOC: RAD 13:49
PROVIDERS: Visit Provider Internal Medicine Pulmonary Disease
DX: J84.9 Interstitial pulmonary disease, unspecified (principal); Q67.6 Pectus excavatum; M41.9 Scoliosis, unspecified; J98.11 Atelectasis
CPT/HCPCS: 71250

== ENCOUNTER 2024-02-25 07:58 | Oncology outpatient (recurring) (ONCR) | payer MEDICAID, SELFPAY ==
[2024-02-25] VITALS (8 sets, daily range): BP systolic 90–121; BP diastolic 57–74; PULSE 71–86; RESP 16–18; TEMP 35.9–36.7; O2SAT 95–98
[2024-02-25 08:58] LABS: Basophils # 0.1 10^3/uL (0.0-0.1); Basophils % 0.9 %; Eosinophils # 0.1 10^3/uL (0.0-0.8); Eosinophils % 1.6 %; Hematocrit 41.4 % (36-47); Lymphocytes # 1.3 10^3/uL (0.8-4.8); Lymphocytes % 23.5 %; Mean Corpuscular HGB Conc 33.1 g/dL (30-55); Mean Corpuscular Hemoglobin 27.7 pg (27-33); Mean Corpuscular Volume 83.6 fl (85-98); Mean Platelet Volume 11.6 fL (7.4-10.4); Monocytes # 0.6 10^3/uL (0.2-0.9); Monocytes % 10.4 %; Neutrophils # 3.59 10^3/uL (1.8-7.7); Neutrophils % 63.4 %; Nucleated Red Blood Cells % 0 %; Platelet Count 182 10^3/cmm (157-399); Red Blood Count 4.95 10^6/uL (3.85-5.65); Red Cell Distribution Width 12.9 % (12.1-15.1); White Blood Count 5.66 10^3/uL (3.29-11.43)
[2024-02-25] MEDS: sodium chloride 0.9% 250 ML 75 ML IV (09:09)
[2024-02-25] MEDS: acetaminophen 325 mg Tablet 650 MG PO (09:14)
[2024-02-25] MEDS: diphenhydrAMINE 50 mg/mL SDV 1mL 25 MG IVP (09:15)
[2024-02-25 09:19] LABS: Alanine Aminotransferase 11 U/L (0-33); Alkaline Phosphatase 95 U/L (35-105); Aspartate Amino Transferase 14 U/L (0-32); C Reactive Protein 5.4 mg/L (0.0-4.9); Creatinine Clr Calc Pharmacy 97.1103; Globulin 2.8 g/dL (1.3-4.6); Glomerular Filtration Rate 63.5 mL/min (90-130); Total Bilirubin 0.3 mg/dL (0.15-1.2); Total Protein 6.8 g/dL (6.6-8.7)
[2024-02-25] MEDS: methylPREDNISolone sod succ 40 mg/mL INJ IVP (09:19)
[2024-02-25] MEDS: infliximab-abda 1,000 MG in sodium chloride 0.9% 250 ML 10 MG IV (10:43)
== END 2024-03-25 23:59 | disposition home or self-care (01) ==
LOC: ONCMED 07:59
PROVIDERS: Visit Provider Internal Medicine Rheumatology
DX: M06.042 Rheumatoid arthritis without rheumatoid factor, left hand; M06.041 Rheumatoid arthritis without rheumatoid factor, right hand
CPT/HCPCS: 80076; 82565; 85025; 86140; 96413; 96415; A4222; J1200; J2919; J7050; Q5104

== ENCOUNTER 2024-04-07 07:55 | Oncology outpatient (recurring) (ONCR) | payer MEDICAID, SELFPAY ==
[2024-04-07] VITALS (8 sets, daily range): BP systolic 99–118; BP diastolic 62–75; PULSE 73–97; RESP 16–18; TEMP 35.6–36.7; O2SAT 93–96
[2024-04-07] MEDS: diphenhydrAMINE 50 mg/mL SDV 1mL 25 MG IVP (08:48)
[2024-04-07] MEDS: sodium chloride 0.9% 250 ML 75 ML IV (08:48)
[2024-04-07] MEDS: acetaminophen 325 mg Tablet 650 MG PO (08:49)
[2024-04-07] MEDS: methylPREDNISolone sod succ 40 mg/mL INJ IVP (08:49)
[2024-04-07 09:10] LABS: Free T4 Free Thyroxine 1.11 ng/dL (0.82-1.77); Thyroid Stimulating Hormone 1.15 uIU/mL (0.27-4.20)
[2024-04-07] MEDS: infliximab-abda 1,000 MG in sodium chloride 0.9% 250 ML 10 MG IV (09:25)
[2024-04-07 14:44] LABS: Hepatitis B Core AB, Total Non-Reactive (Nonreactive); Hepatitis B Surface Antigen Non-Reactive (Nonreactive); Hepatitis C Virus Antibody Non-Reactive (Nonreactive)
[2024-04-08 10:29] LABS: T3 Total 93 ng/dL (76-181)
[2024-04-11 11:19] LABS: Quantiferon Mitogen 3.78 IU/mL; Quantiferon Nil 0.01 IU/mL; Quantiferon TB Gold NEGATIVE (NEGATIVE)
== END 2024-04-24 23:59 | disposition home or self-care (01) ==
PROVIDERS: Internal Medicine; PCP Nurse Practitioner Adult Health; Visit Provider Internal Medicine Rheumatology
DX: M06.042 Rheumatoid arthritis without rheumatoid factor, left hand (principal); M06.041 Rheumatoid arthritis without rheumatoid factor, right hand
CPT/HCPCS: 36415; 84439; 84443; 84480; 86480; 86704; 86803; 87340; 96375; 96413; 96415; A4222; J1200; J2919; J7050; Q5104

== ENCOUNTER 2024-05-11 09:15 | Outpatient (CLI) | payer MEDICAID, SELFPAY ==
--- NOTE | 2024-05-11 09:03 | FL_ITS ---
WS: [id number] Barium swallow and esophagram, air-contrast, 05/11/2024 Clinical Data: DYSPHAGIA,PHARYNGOESOPHAGEAL PHASE Comparison: Barium swallow, 01/25/2019. Fluoroscopy time: 1.5 # of spot films: 8 Findings: The patient swallowed the thick and thin barium, and it flowed through the hypopharynx without hesita tion. No stricture, mass, polyp or erosion was seen. No aspiration or penetration occurred. The barium entered the esophagus and there was normal motility throughout. No hiatal hernia, reflux, stricture, polyp, mass, erosion or ulcer was noted. The barium passed normally into the stomach. FL/FL barium swallow [id number] Impression: Normal esophagram.
== END 2024-05-11 09:16 | disposition home or self-care (01) ==
PROVIDERS: PCP Nurse Practitioner Adult Health; Visit Provider Otolaryngology
DX: R13.14 Dysphagia, pharyngoesophageal phase (principal)
CPT/HCPCS: 74220

== ENCOUNTER 2024-05-19 07:47 | Oncology outpatient (recurring) (ONCR) | payer MEDICAID, SELFPAY ==
[2024-05-19] VITALS (9 sets, daily range): BP systolic 86–105; BP diastolic 57–69; PULSE 59–73; RESP 16–18; TEMP 35.9–36.9; O2SAT 91–98; BMI 35.9
[2024-05-19] MEDS: sodium chloride 0.9% 250 ML 75 ML IV (08:12)
[2024-05-19] MEDS: acetaminophen 325 mg Tablet 650 MG PO (08:15)
[2024-05-19] MEDS: methylPREDNISolone sod succ 125 mg/2 mL INJ IVP (08:16)
[2024-05-19] MEDS: diphenhydrAMINE 50 mg/mL SDV 1mL 25 MG IVP (08:23)
[2024-05-19 08:37] LABS: Alanine Aminotransferase 24 U/L (0-33); Alkaline Phosphatase 73 U/L (35-105); Aspartate Amino Transferase 22 U/L (0-32); Creatinine Clr Calc Pharmacy 109.1617; Globulin 2.8 g/dL (1.3-4.6); Glomerular Filtration Rate 71.7 mL/min (90-130); Total Bilirubin 0.4 mg/dL (0.15-1.2); Total Protein 6.8 g/dL (6.6-8.7)
[2024-05-19 08:54] LABS: Basophils # 0.1 10^3/uL (0.0-0.1); Basophils % 1.6 %; Eosinophils # 0.1 10^3/uL (0.0-0.8); Eosinophils % 3.4 %; Hematocrit 40.7 % (36-47); Lymphocytes # 1.6 10^3/uL (0.8-4.8); Lymphocytes % 41.5 %; Mean Corpuscular HGB Conc 32.4 g/dL (30-55); Mean Corpuscular Hemoglobin 26.8 pg (27-33); Mean Corpuscular Volume 82.6 fl (85-98); Monocytes # 0.4 10^3/uL (0.2-0.9); Monocytes % 10.2 %; Neutrophils # 1.65 10^3/uL (1.8-7.7); Nucleated Red Blood Cells % 0 %; Platelet Count 217 10^3/cmm (157-399); Red Blood Count 4.93 10^6/uL (3.85-5.65); Red Cell Distribution Width 13.3 % (12.1-15.1); White Blood Count 3.83 10^3/uL (3.29-11.43)
[2024-05-19] MEDS: rituximab 1,000 MG in sodium chloride 0.9% 500 ML 50 MG IV (09:04)
[2024-05-19 09:20] LABS: Erythrocyte Sedimentation Rate 16 mm/hr (0-15)
== END 2024-05-19 23:59 | disposition home or self-care (01) ==
PROVIDERS: PCP Nurse Practitioner Adult Health; Visit Provider Internal Medicine Rheumatology
DX: M06.042 Rheumatoid arthritis without rheumatoid factor, left hand (principal); M06.041 Rheumatoid arthritis without rheumatoid factor, right hand; Z79.899 Other long term (current) drug therapy
CPT/HCPCS: 80076; 82565; 85025; 85651; 96375; 96413; 96415; J1200; J2919; J7040; J7050; J9312

== ENCOUNTER 2024-06-02 07:50 | Oncology outpatient (recurring) (ONCR) | payer MEDICAID, SELFPAY ==
[2024-06-02 08:04] VITALS: BP 107/71; PULSE 81; RESP 17; TEMP 36.7; O2SAT 97
[2024-06-02] MEDS: acetaminophen 325 mg Tablet 650 MG PO (08:30)
[2024-06-02] MEDS: sodium chloride 0.9% 250 ML 75 ML IV (08:30)
[2024-06-02] MEDS: diphenhydrAMINE 50 mg/mL SDV 1mL 25 MG IVP (08:31)
[2024-06-02] MEDS: methylPREDNISolone sod succ 125 mg/2 mL INJ IVP (08:34)
[2024-06-02] MEDS: rituximab 1,000 MG in sodium chloride 0.9% 500 ML 60 MG IV (08:50)
[2024-06-02 08:55] VITALS: BP 113/72; PULSE 64; RESP 16; TEMP 36.7; O2SAT 98
[2024-06-02 09:20] VITALS: BP 102/63; PULSE 61; RESP 16; TEMP 36.4; O2SAT 98
[2024-06-02 09:50] VITALS: BP 103/62; PULSE 61; RESP 16; TEMP 36.7; O2SAT 98
[2024-06-02 12:31] VITALS: BP 109/66; PULSE 65; RESP 16; TEMP 36.7; O2SAT 98
== END 2024-06-02 23:59 | disposition home or self-care (01) ==
PROVIDERS: PCP Nurse Practitioner Adult Health; Visit Provider Internal Medicine Rheumatology
DX: M06.042 Rheumatoid arthritis without rheumatoid factor, left hand (principal); M06.041 Rheumatoid arthritis without rheumatoid factor, right hand; Z79.899 Other long term (current) drug therapy
CPT/HCPCS: 96375; 96413; 96415; J1200; J2919; J7040; J7050; J9312

== ENCOUNTER 2024-06-10 07:58 | Outpatient (CLI) | payer MEDICAID, SELFPAY ==
--- NOTE | 2024-06-10 08:00 | US_ITS ---
WS: [id number] ULTRASOUND THYROID TECHNIQUE: Ultrasound of the thyroid. CLINICAL INFORMATION: HYPOTHYROIDISM COMPARISON: 2022 FINDINGS: Thyroid: Prior RIGHT thyroidectomy. Normal LEFT thyroid. RIGHT thyroid bed appears normal. Right thyroid lobe: Removed Left thyroid lobe: 4.9 cm x 2.0 cm x 1.8 cm. Isthmus: 0.2 mm. Cervical lymphadenopathy: None. US/US thyroid [id number] IMPRESSION: 1. Prior RIGHT thyroidectomy. RIGHT thyroid bed appears normal. 2. Normal LEFT thyroid lobe. 3. There are thyroid nodules.
== END 2024-06-10 07:59 | disposition home or self-care (01) ==
LOC: RAD 07:58
PROVIDERS: PCP Nurse Practitioner Adult Health; Visit Provider Otolaryngology
DX: E03.9 Hypothyroidism, unspecified (principal); E04.2 Nontoxic multinodular goiter
CPT/HCPCS: 76536

== ENCOUNTER → 2024-07-14 14:15 | Outpatient (BNVA) | payer MEDICAID, BC, SELFPAY | PROVIDERS: PCP Nurse Practitioner Adult Health; Visit Provider Nurse Practitioner Family | DX: D48.5 Neoplasm of uncertain behavior of skin (principal); L70.0 Acne vulgaris; L30.4 Erythema intertrigo; L91.0 Hypertrophic scar; D22.5 Melanocytic nevi of trunk; L30.9 Dermatitis, unspecified | CPT/HCPCS: 11102; 99204 ==

== ENCOUNTER 2024-08-03 09:48 | Outpatient (CLI) | payer BC, MEDICAID, SELFPAY ==
--- NOTE | 2024-08-03 09:53 | FL_ITS ---
WS: [email or web address] FL barium swallow modifd [id number] REASON FOR EXAM: Pharyngoesoph. dysphagia FLUOROSCOPY TIME: 2min [id number] # OF SPOT FILMS: None FINDINGS: Examination was supervised by the speech therapy department. With the patient in the sitting upright lateral projection and the standing AP projection varying con sistencies of barium were administered the swallow was monitored fluoroscopically and video recorded. A detailed report of the swallowing will be rendered by the speech therapy department. No aspiration identified. No distal esophageal obstruction. FL/FL barium swallow modifd [id number] IMPRESSION: Modified barium swallow as above.
== END 2024-08-03 09:49 | disposition home or self-care (01) ==
LOC: RAD 09:50
PROVIDERS: PCP Nurse Practitioner Adult Health; Visit Provider Otolaryngology
DX: R13.13 Dysphagia, pharyngeal phase (principal)
CPT/HCPCS: 74230; 92611

== ENCOUNTER 2024-10-06 08:14 | Oncology outpatient (recurring) (ONCR) | payer OTHER, BC, MEDICAID, SELFPAY ==
[2024-10-06 08:21] VITALS: BP 113/64; PULSE 64; RESP 16; TEMP 36.9
== END 2024-10-25 23:59 | disposition home or self-care (01) ==
PROVIDERS: PCP Nurse Practitioner Adult Health; Visit Provider Internal Medicine Rheumatology
DX: Z45.2 Encounter for adjustment and management of vascular access device (principal); Z53.9 Procedure and treatment not carried out, unspecified reason

== ENCOUNTER 2024-11-30 08:01 | Oncology outpatient (recurring) (ONCR) | payer OTHER, BC, MEDICAID, SELFPAY ==
[2024-11-30 08:43] VITALS: BP 123/75; PULSE 75; RESP 18; TEMP 36.6; O2SAT 99
[2024-11-30 08:50] LABS: Basophils # 0.1 10^3/uL (0.0-0.1); Basophils % 1.3 %; Eosinophils # 0.1 10^3/uL (0.0-0.8); Eosinophils % 2.9 %; Hematocrit 41.5 % (36-47); Lymphocytes % 20.6 %; Mean Corpuscular HGB Conc 32.3 g/dL (30-55); Mean Corpuscular Hemoglobin 24.9 pg (27-33); Mean Corpuscular Volume 77.1 fl (85-98); Mean Platelet Volume 11.6 fL (7.4-10.4); Monocytes # 0.4 10^3/uL (0.2-0.9); Monocytes % 7.9 %; Neutrophils # 3.21 10^3/uL (1.8-7.7); Neutrophils % 66.9 %; Nucleated Red Blood Cells % 0 %; Platelet Count 225 10^3/cmm (157-399); Red Blood Count 5.38 10^6/uL (3.85-5.65)
[2024-11-30 08:55] LABS: Erythrocyte Sedimentation Rate 6 mm/hr (0-15)
[2024-11-30] MEDS: diphenhydrAMINE 50 mg/mL SDV 1mL 25 MG IVP (08:56)
[2024-11-30] MEDS: sodium chloride 0.9% 250 ML 75 ML IV (08:56)
[2024-11-30] MEDS: acetaminophen 325 mg Tablet 650 MG PO (08:57)
[2024-11-30 09:12] LABS: Alanine Aminotransferase 17 U/L (0-33); Albumin Level 4.2 g/dL (3.5-5.2); Alkaline Phosphatase 80 U/L (35-105); Aspartate Amino Transferase 16 U/L (0-32); C Reactive Protein 6.7 mg/L (0.0-4.9); Globulin 2.6 g/dL (1.3-4.6); Glomerular Filtration Rate 71.3 mL/min (90-130); Total Bilirubin 0.5 mg/dL (0.15-1.2); Total Protein 6.8 g/dL (6.6-8.7)
[2024-11-30] MEDS: methylPREDNISolone sod succ 125 mg/2 mL INJ IVP (09:19)
[2024-11-30] MEDS: rituximab-abbs 1,000 MG in sodium chloride 0.9% 500 ML 100 MG IV (09:56)
[2024-11-30 10:00] VITALS: BP 119/79; PULSE 65; RESP 16; TEMP 36.4; O2SAT 99
[2024-11-30 10:30] VITALS: BP 118/74; PULSE 70; RESP 18; TEMP 36.6; O2SAT 99
[2024-11-30 13:30] VITALS: BP 121/73; PULSE 71; RESP 18; TEMP 36.9; O2SAT 97
[2024-11-30 13:32] VITALS: BP 121/73; PULSE 71; RESP 16; TEMP 36.9; O2SAT 97
== END 2024-11-30 23:59 | disposition home or self-care (01) ==
LOC: ONCMED 08:01
PROVIDERS: PCP Nurse Practitioner Adult Health; Visit Provider Internal Medicine Rheumatology
DX: M06.041 Rheumatoid arthritis without rheumatoid factor, right hand (principal); M06.042 Rheumatoid arthritis without rheumatoid factor, left hand; Z79.899 Other long term (current) drug therapy
CPT/HCPCS: 80076; 82565; 85025; 85651; 86140; 96375; 96413; 96415; J1200; J2919; J7040; J7050; Q5115

== ENCOUNTER → 2024-12-21 10:00 | Outpatient (BNVA) | payer OTHER, BC, MEDICAID, SELFPAY | PROVIDERS: PCP Nurse Practitioner Adult Health; Visit Provider Podiatrist Foot & Ankle Surgery | DX: S99.922A Unspecified injury of left foot, initial encounter (principal); E23.7 Disorder of pituitary gland, unspecified; M77.41 Metatarsalgia, right foot; E07.9 Disorder of thyroid, unspecified; S90.32XA Contusion of left foot, initial encounter; R53.83 Other fatigue; W20.8XXA Other cause of strike by thrown, projected or falling object, initial encounter; H53.60 Unspecified night blindness; G47.33 Obstructive sleep apnea (adult) (pediatric) | CPT/HCPCS: 36415; 73630; 84439; 84443; 84480 ==

== ENCOUNTER 2025-01-11 09:24 | Day surgery (SDC) | payer OTHER, BC, MEDICAID, SELFPAY ==
[2025-01-11] VITALS (7 sets, daily range): BP systolic 100–124; BP diastolic 56–83; PULSE 60–78; RESP 16–17; TEMP 36.1–36.7; O2SAT 97–99; BMI 32.8
[2025-01-11] MEDS: sodium chloride 0.9% 1,000 ML 30 ML IV (09:57)
--- NOTE | 2025-01-11 10:00 | ANES.PREANE2 ---
Pre-Anesthetic Assessment Height/Weight: Height 1.7 m Weight 95.254 kg Temp Pulse Resp BP Pulse Ox O2 Del Method 98.0 F 76 17 124/83 99 Room Air 01/11/25 09:34 01/11/25 09:34 01/11/25 09:34 01/11/25 09:34 01/11/25 09:34 01/11/25 09:40 Operation Date: 01/11/25 11:20 Proposed Procedures p Portacath Placement 03957 Z95.828 M06.041 M06.042(Not Applicable) - Alirio Waddell MD Familial anesthetic complications: None Was Beta Maryanne taken within 24 hours: N/A Was Clonidine taken within 24 hours: N/A Last intake: Intake Last Liquid Date 01/10/25 Last Liquid Time 20:00 Last Solid Date 01/10/25 Last Solid Time 18:00 Social No alcohol and No tobacco Exam alert, oriented x 3, clear to auscultation bilaterally and regular rate & rhythm Airway Mallampati: Class II Dentition: full Pulmonary Sleep Apnea Metabolic Morbid Obesity and Thyroid Disease [facility] [place] [place] [facility] Fibromyalgia and Rheumatoid Arthritis angel danlos scoliosis Anesthetic Plan ASA status: 3 Anesthesia: MAC Risk of > 500 ml blood loss (7ml/kg in children): No Medications/Allergies Home Medications ?Medication ?Instructions ?Recorded ?Confirmed ?Last Taken ?Type midodrine 5 mg tablet 5 mg PO TID 06/04/23 01/10/25 01/10/25 History vortioxetine [Trintellix] 20 mg PO QAM 12/15/23 01/10/25 01/10/25 History famotidine 40 mg tablet 410 mg PO BID 12/24/23 01/10/25 01/10/25 History pantoprazole 40 mg tablet,delayed 40 mg PO DAILY 12/24/23 01/10/25 01/10/25 History release ivabradine 5 mg tablet (Corlanor) 5 mg PO BID 04/07/24 01/10/25 01/10/25 History ondansetron HCl 4 mg tablet 4 mg PO Q8H 04/07/24 01/10/25 01/10/25 History tiotropium bromide 18 mcg capsule 1 cap inhalation DAILY #30 06/15/24 01/10/25 01/10/25 Rx with inhalation device (Spiriva inhalations with HandiHaler) budesonide-formoterol HFA 160 2 puff inhalation BID #10.2 grams 06/16/24 01/10/25 01/10/25 Rx mcg-4.5 mcg/actuation aerosol inhaler (Symbicort) ipratropium bromide 17 1 puff inhalation DIRECTED PRN 07/05/24 01/10/25 Unknown History mcg/actuation HFA aerosol inhaler Shortness Of Breath (Atrovent HFA) levalbuterol tartrate 45 2 puff inhalation PRN PRN 07/05/24 01/10/25 Unknown History mcg/actuation aerosol inhaler Shortness Of Breath Or Wheezing pyridoxine (vitamin B6) 100 mg 100 mg PO DAILY Bloodwork 07/05/24 01/10/25 01/10/25 History tablet (Vitamin B-6) rituximab 10 mg/mL mg IV Inflammation 07/05/24 01/09/25 Unknown History concentrate,intravenous thyroid (pork) 15 mg tablet See Rx Instructions .Route 08/10/24 01/10/25 01/10/25 Rx ([place] Thyroid) .COMPLEX #30 tabs celecoxib 200 mg capsule (Celebrex) 200 mg PO BID #60 caps 12/21/24 01/10/25 01/10/25 Rx cholecalciferol (vitamin D3) 50 50 mcg PO DAILY #90 caps 12/21/24 01/10/25 01/10/25 Rx mcg (2,000 unit) capsule pregabalin 200 mg capsule (Lyrica) 200 mg PO TID #90 caps 12/21/24 01/10/25 01/10/25 Rx sulfasalazine 500 mg tablet 1 g (2 x 500 mg) PO BID #120 tabs 12/21/24 01/10/25 01/10/25 Rx liothyronine 5 mcg tablet (Cytomel) 5 mcg PO DAILY #90 tabs 12/25/24 01/10/25 01/10/25 Rx Allergies Allergy/AdvReac Type Severity Reaction Status Date / Time No Known Allergies Allergy Verified 01/09/25 08:00 Current Medications Generic Name Dose Route Start Last Admin Trade Name Freq PRN Reason Stop Dose Admin Sodium Chloride 1,000 mls @ 30 mls/hr 01/11/25 09:30 01/11/25 09:57 Sodium Chloride 0.9% IV 01/12/25 09:29 30 mls/hr .Q24H ANDREINA Administration PFSH Anesthesia Medical History 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, hyperextensible joints Irritable bowel syndrome (IBS) prominently diarrhea Chronic GERD Hypothyroid High risk medication use Hypertension Cubital tunnel syndrome on left s/p release Sx Vitamin D deficiency Ulnar neuropathy at elbow Subclinical hypothyroidism Asthma-COPD overlap syndrome Mitral valve prolapse Smoker Seronegative rheumatoid arthritis Seronegative rheumatoid arthritis of both hands Joint pain Muscle pain High risk medication use TMJ arthritis Immunization counseling Fibromyalgia Family history of psoriasis in mother Inflammatory arthritis History of ADHD diagnosed as a child, history of taking Ritalin Obsessive-compulsive disorder Chronic post-traumatic stress disorder 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 Performed per Dr. Mayers at [place], [place] Previous back surgery x2 MOBLEY RODS - HARDWARE REMOVED IN 2007 S/P tonsillectomy S/P hernia repair 2010, umbilical Family History Mother Cervical cancer dx at unknown age Thyroid disease Hypertension Heart disease Lewy body dementia Grandmother Ovarian cancer maternal Father Stroke Denies family history of Colon cancer Hyperlipidemia Breast cancer Social History Smoking and tobacco/nicotine status: current some day tobacco/nicotine user (vapes) e-cigarettes E-Cigarette Details: vaporizer device E-cig/vape details: Vapes Quit status (tobacco/nicotine): has quit using Second hand smoke exposure: Yes Alcohol intake: current Alcohol intake frequency: holidays/special occasions only Substance/Drug Use: never Adopted: Yes Lives independently: Yes Housing: House Marital status: Female Reproductive History Date of last menstrual period: 01/09/25 Data Anesthesia Cardiac Studies: Echocardiogram 07/11/22 Cardiac Event Monitor 01/13/23 Holter Monitor 04/02/22
[2025-01-11 10:31] LABS: OR HCG Qualitative Urine Negative (Negative)
--- NOTE | 2025-01-11 10:46 | W.PM.OPSUD ---
Surgery/Procedure H&P Update DATE OF PROCEDURE: January 11, 2025 DATE H&P PERFORMED: 01/09/25 H&P UPDATE INFORMATION: I have reviewed H&P completed within last 30 days, I have examined patient prior to procedure and No changes to prior documentation PLANNED PROCEDURE: Operation Date: 01/11/25 11:20 Proposed Procedures p Portacath Placement 15782 Z95.828 M06.041 M06.042(Not Applicable) - Alirio Waddell MD
[2025-01-11] MEDS: ceFAZolin 2,000 mg SDV 2000 MG IVP (11:00)
[2025-01-11] MEDS: BUPivacaine 0.25% INJ 30 mL INJECTION (11:13)
[2025-01-11] MEDS: lidocaine-epi 1% PF 1:200,000 30 mL SDV INJECTION (11:13)
[2025-01-11] MEDS: heparin, porcine 1,000 unit/mL INJ 10 mL 10000 UNIT INJECTION (11:18)
--- NOTE | 2025-01-11 11:30 | P.OP_ITS ---
Operative Report Date of procedure: January 11, 2025 Pre-op diagnosis: Rheumatoid arthritis Post-op diagnosis: same Post-op findings: Tip of catheter at atriocaval junction confirmed with intraoperative fluoroscopy interpretation. Right internal jugular vein accessed. Port is functional. Procedure done: Port-A-Cath placement Implants: Port-A-Cath Specimens removed/disposition: N/A Pathology: none sent Surgeon: Alirio Waddell MD Head Batcher: N/A Anesthesia: MAC Estimated blood loss (mL): 5 Complications: N/A Findings: Tip of catheter at atriocaval junction confirmed with intraoperative fluoroscopy interpretation. Right internal jugular vein accessed. Port is functional. Condition: stable Disposition: same day Brief History: 34-year-old female who presented to for a port placement. History of rheumatoid arthritis with frequent blood draws and infusions. Difficult IV access. Discussed risks, benefits and patient agreed to proceed with port placement. Procedure: Patient was brought into the operating room and a timeout was carried out. Procedure was done under MAC. Patient was placed supine with the arms tucked and in Trendelenburg. Patient was prepped and draped in the usual sterile fashion. Using ultrasound guidance the right internal jugular vein was accessed. A guidewire was then placed down to the atriocaval junction using fluoroscopy. The finder needle was removed and the guidewire was secured. I then turned my attention to creating a pocket over the right chest. Make sure to locally infiltrated using plain lidocaine and bupivacaine at the site of the pocket and throughout the tunnel site. I confirmed adequate hemostasis at the pocket. I then proceeded to place the port that was already preassembled and flushed with heparinized saline and the chest pocket. I tunneled the catheter from the chest to the neck at the site where I accessed the internal jugular vein. I measured and adjusted the length of the catheter so it would reach the atrial caval junction. At this point, I used a dilator to dilate the tract into the internal jugular vein using fluoroscopy. I removed the guidewire and proceeded to thread the central venous catheter through the introducer. In the process, I removed the sheath as a completely pushed the catheter into the internal jugular vein. I then confirmed adequate placement of the catheter by performing intraoperative interpretation of fluoroscopy. The tip of the cecil ter was confirmed to be placed in the atriocaval junction. There were no kinks noted throughout the trajectory of the catheter. I then proceeded to test the port and was satisfied with its functionality. I proceeded to flushed the catheter without any issues. I then hep-locked the port. Skin was closed using deep dermal 3-0 Vicryl, subcuticular 4-0 Monocryl, and Dermabond. Patient was then transferred to PACU without any complications.
--- NOTE | 2025-01-11 11:39 | XR_ITS ---
WS: [id number] Portable AP upright chest, 01/11/2025 Clinical Data: ALEKSANDR CATH Comparison: Two-view chest, 03/20/2022 Findings: A right Port-A-Cath has been inserted via the right internal jugular vein and ends in the superior vena cava. XR/XR chest 1V portable [id number] Impression: Insertion of right Port-A-Cath.
--- NOTE | 2025-01-11 12:40 | ANE.PACU2 ---
Inpatient post-anesthesia follow up: Airway intact: Yes Vital signs: Temperature 97.3 F Pulse Rate 61 Respiratory Rate 17 Blood Pressure 109/77 Pulse Oximetry 98 Oxygen Delivery Me thod Room Air Oxygen Flow Rate Fraction of Inspir ed Oxygen Hydration adequate: Yes Nausea and vomiting: No Pain level: 1 Mental status: Baseline
== END 2025-01-11 12:40 | disposition home or self-care (01) ==
PROVIDERS: Anesthesiology; PCP Family Medicine; Visit Provider Student in an Organized Health Care Education/Training Program
PROC: (CPT 36561; principal; 2025-01-11 11:10)
DX: M06.041 Rheumatoid arthritis without rheumatoid factor, right hand (principal); M06.042 Rheumatoid arthritis without rheumatoid factor, left hand; F17.290 Nicotine dependence, other tobacco product, uncomplicated; I10 Essential (primary) hypertension; E03.9 Hypothyroidism, unspecified; J44.9 Chronic obstructive pulmonary disease, unspecified; G47.30 Sleep apnea, unspecified; E66.01 Morbid (severe) obesity due to excess calories; Z68.32 Body mass index [BMI] 32.0-32.9, adult
CPT/HCPCS: 36561; 71045; 81025; C1788; J0690; J1644; J2250; J2704; J3010; J3490; J7030; J9999

== ENCOUNTER 2025-01-18 07:53 | Oncology outpatient (recurring) (ONCR) | payer OTHER, BC, MEDICAID, SELFPAY ==
--- NOTE | 2025-01-18 08:38 | PC.NURSE ---
Pt in infusion room for Rituxan infusion. Pt presents with rash on right side of neck to center of neck as well as redness going down to port that was placed on 01/11/25. Pt states she went to the emergency room on 01/14/25 ([place], [place]). Per patient, hospital did not know what was wrong. Pt was given Augmentin and valacyclovir. Called Dr. Steel at 0830, he is requesting I send a picture of rash to his cell phone if pt approves. Spoke with patient, she approved of taking a picture of rash and sending to Dr. Steel. Three pictures were taken, pt reviewed pictures. No pt identifiers were in pictures. Two out of three pictures were sent to Dr. Steel. This nurse then had patient watch as pictures were deleted from gallery as well as trash bin in phone. Pt also watched as pictures were deleted from text message to Dr. Steel. Per Dr. Steel in phone message, send patient home, he will call pt and get history and he will get back to us for further orders. Pt states she is going to see surgeon when leaving infusion room to have port assessed.
== END 2025-01-23 23:59 | disposition home or self-care (01) ==
LOC: ONCMED 07:54
PROVIDERS: PCP Family Medicine; Visit Provider Internal Medicine Rheumatology
DX: Z53.9 Procedure and treatment not carried out, unspecified reason (principal)

== ENCOUNTER 2025-03-16 07:45 | Oncology outpatient (recurring) (ONCR) | payer OTHER, BC, MEDICAID, SELFPAY ==
--- NOTE | 2025-03-02 11:07 | PC.NURSE ---
Spoke with Dr. Patel regarding pts Rituxan order. Verbal order for pt to start a new cycle and receive day's 1 and 14.
[2025-03-02 12:08] LABS: Basophils # 0.1 10^3/uL (0.0-0.1); Basophils % 1.5 %; Eosinophils # 0.2 10^3/uL (0.0-0.8); Eosinophils % 3.7 %; Hematocrit 36.7 % (36-47); Lymphocytes # 1.3 10^3/uL (0.8-4.8); Lymphocytes % 30.6 %; Mean Corpuscular HGB Conc 31.6 g/dL (30-55); Mean Corpuscular Hemoglobin 25.2 pg (27-33); Mean Corpuscular Volume 79.6 fl (85-98); Mean Platelet Volume 11.8 fL (7.4-10.4); Monocytes # 0.5 10^3/uL (0.2-0.9); Monocytes % 11.5 %; Neutrophils # 2.14 10^3/uL (1.8-7.7); Neutrophils % 52.5 %; Nucleated Red Blood Cells % 0 %; Platelet Count 215 10^3/cmm (157-399); Red Blood Count 4.61 10^6/uL (3.85-5.65); Red Cell Distribution Width 15.8 % (12.1-15.1); White Blood Count 4.08 10^3/uL (3.29-11.43)
[2025-03-02 12:12] LABS: Erythrocyte Sedimentation Rate 6 mm/hr (0-15)
[2025-03-02] MEDS: sodium chloride 0.9% 500 ML 75 ML IV (12:20)
[2025-03-02] MEDS: diphenhydrAMINE 50 mg/mL SDV 1mL 25 MG IVP (12:21)
[2025-03-02] MEDS: acetaminophen 325 mg Tablet 650 MG PO (12:22)
[2025-03-02 12:27] LABS: Alanine Aminotransferase 13 U/L (0-33); Albumin Level 3.7 g/dL (3.5-5.2); Alkaline Phosphatase 68 U/L (35-105); Aspartate Amino Transferase 16 U/L (0-32); C Reactive Protein 7.6 mg/L (0.0-4.9); Creatinine Clr Calc Pharmacy 133.8856; Globulin 2.4 g/dL (1.3-4.6); Glomerular Filtration Rate 95.2 mL/min (90-130); Total Bilirubin 0.3 mg/dL (0.15-1.2); Total Protein 6.1 g/dL (6.6-8.7)
[2025-03-02] MEDS: methylPREDNISolone sod succ 125 mg/2 mL INJ IVP (12:27)
[2025-03-02] MEDS: rituximab-abbs 1,000 MG in sodium chloride 0.9% 500 ML 200 MG IV (13:02)
[2025-03-02 13:09] VITALS: BP 124/74; PULSE 71; RESP 16; TEMP 36; O2SAT 95
[2025-03-02 13:37] VITALS: BP 111/71; PULSE 70; RESP 16; TEMP 35.9; O2SAT 98
[2025-03-02 14:07] VITALS: BP 104/71; PULSE 70; RESP 16; TEMP 35.9; O2SAT 97
[2025-03-02 14:42] VITALS: BP 105/56; PULSE 71; RESP 16; TEMP 36.3; O2SAT 95
[2025-03-02 15:15] VITALS: BP 103/63; PULSE 72; RESP 16; TEMP 36.4; O2SAT 95
[2025-03-02 16:12] VITALS: BP 115/78; PULSE 75; RESP 16; TEMP 36.4; O2SAT 94
[2025-03-16 09:03] VITALS: BP 110/83; PULSE 73; RESP 16; TEMP 36.1; O2SAT 98
[2025-03-16] MEDS: sodium chloride 0.9% 500 ML 75 ML IV (09:09)
[2025-03-16] MEDS: acetaminophen 325 mg Tablet 650 MG PO (09:10)
[2025-03-16] MEDS: diphenhydrAMINE 50 mg/mL SDV 1mL 25 MG IVP (09:11)
[2025-03-16] MEDS: methylPREDNISolone sod succ 125 mg/2 mL INJ IVP (09:11)
[2025-03-16 09:40] VITALS: BP 116/76; PULSE 67; RESP 18; TEMP 36.6; O2SAT 98
[2025-03-16] MEDS: rituximab-abbs 1,000 MG in sodium chloride 0.9% 500 ML 70 MG IV (09:40)
[2025-03-16 10:14] VITALS: BP 117/77; PULSE 66; RESP 18; TEMP 36.5; O2SAT 98
[2025-03-16 10:49] VITALS: BP 118/77; PULSE 65; RESP 16; TEMP 36.2; O2SAT 95
[2025-03-16 11:19] VITALS: BP 118/79; PULSE 68; RESP 16; TEMP 36.3; O2SAT 96
[2025-03-16 12:58] VITALS: BP 128/87; PULSE 81; RESP 18; TEMP 36.6; O2SAT 96
== END 2025-03-16 23:59 | disposition home or self-care (01) ==
PROVIDERS: PCP Family Medicine; Visit Provider Internal Medicine Rheumatology
DX: M06.042 Rheumatoid arthritis without rheumatoid factor, left hand (principal); M06.041 Rheumatoid arthritis without rheumatoid factor, right hand
CPT/HCPCS: 80076; 82565; 85025; 85651; 86140; 96374; 96375; 96413; 96415; J1200; J2919; J7040; J9999; Q5115